=== PATIENT | male | born 1960 | race Caucasian/White ===

== ENCOUNTER 2019-08-07 15:14 | Outpatient (CLI) | payer OTHER, SELFPAY ==
--- NOTE | ~2019-08-07 | XR_ITS ---
XR lumbar spine 2-3V 08/07/2019 15:45 Indication: Low back pain. Spinal stenosis. Procedure: 3 views lumbar spine Comparison: No prior studies for comparison. Findings: There is spondylolysis at L5-S1 with grade 1 spondylolisthesis. There is disc narrowing at L5-S1. There is disc narrowing at L4-5 and L3-4. Pedicle intact. Sacral foramen are symmetric. No fra cture or traumatic malalignment. Impression: 1: Mild-moderate lumbar spondylosis with grade 1 spondylolisthesis at L5-S1 secondary to spondylolysi s. Reviewed, dictated and finalized at location B. R DIESEL LOCOMOTIVE Impression: 1: Mild-moderate lumbar spondylosis with grade 1 spondylolisthesis at L5-S1 sec ondary to spondylolysis.
--- NOTE | ~2019-08-07 | XR_ITS ---
EXAMINATION: XR thoracic spine 3V EXAM DATE: 08/07/2019 15:45 INDICATION: Dorsalgia, spinal stenosis. Injury years ago. Pain is increasing. TECHNIQUE: Frontal and lateral projections of the thoracic spine as well as lateral swimmers projecti on of the upper thoracic spine for interpretation. There is no prior study for comparison. FINDINGS: There is mild mid thoracic and lower thoracic disc disease. There are no bony erosions iden tified. Multilead pacemaker/AICD device. The vertebral bodies are aligned in the AP dimension. Parasp inal soft tissue is unremarkable. There is a nodular density projecting over 2 ribs and the right lateral aspect of the lung zones. Cou ld be bone island, summation shadows or intraparenchymal nodule. This is not identified on a chest x- ray from 2010. Recommend follow-up two-view frontal and lateral examination. IMPRESSION: 1. Indeterminate right midlung zone lateral nodular density; recommend PA/lateral chest x-rays. 2. Mild thoracic spondylosis. Reviewed, dictated and finalized at location A. STEWARD IMPRESSION: 1. Indeterminate right midlung zone lateral nodular density; recommend PA/late ral chest x-rays. 2. Mild thoracic spondylosis.
--- NOTE | ~2019-08-07 | XR_ITS ---
XR cervical spine 4-5V 08/07/2019 15:45 Indication: Low back pain. Spinal stenosis. Procedure: 4 view cervical spine Comparison: No prior studies for comparison. Findings: There is degenerative anterolisthesis at C2-3 and retrolisthesis at C3-4. There is disc silvia rowing at C3-4 through C7-T1. No acute fracture or traumatic malalignment. There is mild uncinate and facet degenerative change at multiple levels. No prevertebral soft tissue swelling. Lung apices are normal. Impression: 1: Mild-moderate cervical spondylosis. Reviewed, dictated and finalized at location B. MAKER Impression: 1: Mild-moderate cervical spondylosis.
== END 2019-08-07 15:15 | disposition home or self-care (01) ==
PROVIDERS: PCP Family Medicine; Visit Provider Nurse Practitioner Family
DX: M48.02 Spinal stenosis, cervical region (principal); M47.894 Other spondylosis, thoracic region; M47.896 Other spondylosis, lumbar region; M47.892 Other spondylosis, cervical region
CPT/HCPCS: 72050; 72072; 72100

== ENCOUNTER 2020-10-20 22:49 | Emergency (ER) | payer OTHER, SELFPAY ==
--- NOTE | ~2020-10-20 | CT_ITS ---
EXAMINATION: CT lumbar spine wo con DATE: 10/21/2020 01:43 INDICATION: Low back pain. Sciatica. TECHNIQUE: Computed tomography (CT) of the lumbar spine was performed without intravenous contrast. A utomated exposure control and iterative reconstruction technique were employed. The dose-length produ ct was 520.66 mGy-cm. COMPARISON: Lumbar spine radiograph 08/07/2019 FINDINGS: There is 7 degrees dextrocurvature of lumbar spine. There are chronic bilateral L5 pars def ects. There is 7 mm anterolisthesis of L5 on S1. There is severely decreased disc height at L5-S1 wit h endplate remodeling and mild chronic height loss of L5 vertebral body. There is mildly decreased di sc height at L3-L4. The following disc levels are specifically discussed: L1-L2: The disc does not extend beyond the endplate margin. There is mild bilateral facet joint osteo arthritis. There is no neural foraminal stenosis. There is no central canal stenosis. L2-L3: The disc does not extend beyond the endplate margin. There is mild bilateral facet joint osteo arthritis. There is no neural foraminal stenosis. There is no central canal stenosis. L3-L4: The disc is bulging. There is mild bilateral facet joint osteoarthritis. There is moderate john ateral neural foraminal stenosis. There is mild central canal stenosis. L4-L5: The disc is bulging. There is severe bilateral facet joint osteoarthritis. There is moderate b ilateral neural foraminal stenosis. There is mild central canal stenosis. L5-S1: The disc is bulging. There is severe bilateral facet joint osteoarthritis. There is moderate b ilateral neural foraminal stenosis. There is moderate central canal stenosis. IMPRESSION: 1. Chronic bilateral L5 pars defects with grade 1 anterolisthesis of L5 on S1. 2. Severe lower lumbar spondylosis. Reviewed, dictated and finalized at location A.
[2020-10-20 22:50] VITALS: BP 126/69; PULSE 93; RESP 17; TEMP 36.4; O2SAT 100
--- NOTE | 2020-10-21 00:42 | PC.NURSE ---
1ST CALL TO BRING TO A ROOM, NO ANSWER AT THIS TIME.
[2020-10-21 01:45] VITALS: BP 130/83; PULSE 81; RESP 20; O2SAT 99
[2020-10-21] MEDS: HYDROmorphone HCL INJ (*CRX) 1 MG/ML SYR IM (01:47)
[2020-10-21] MEDS: methylPREDNISolone SOD SUCC 125 MG VIAL IM (01:47)
[2020-10-21] MEDS: diazePAM INJ (*CRX) 10 MG/2 ML SYRINGE 5 MG IM (01:48)
--- NOTE | 2020-10-21 02:18 | ED.GENADULT ---
HPI - General Adult General Chief complaint: Back Pain/Injury Stated complaint: back and neck pain Time Seen by Provider: 10/21/20 01:20 History of Present Illness HPI narrative: Patient is a 60-year-old gentleman who presents emerged part with chief complaint of low back pain. Patient reports that he started having pain in his lumbar region reports it radiates down to his right gluteal region reports it goes down his right leg. Patient reports he has history of sciatica and history of chronic back pain. The patient reports that his doctors been reducing his pain medication and muscle relaxer Related Data Home Medications Medication Instructions Recorded Confirmed atorvastatin 10/21/20 hydrocodone-acetaminophen tablet 10/21/20 Allergies Allergy/AdvReac Type Severity Reaction Status Date / Time No Known Allergies Allergy Verified 10/21/20 01:45 Review of Systems Review of Systems: Narrative: A 10 system review of systems was completed on the patient and is negative except for what is stated in the HPI. Nursing and ancillary documentation was reviewed. PMFSH Comments Patient has history of congestive heart failure AICD placement patient has history of chronic back pain Social history patient denies illicit drug use Exam Narrative: Exam Narrative: GENERAL: Well-appearing, well-nourished, and in no acute distress. HEAD: Normocephalic, atraumatic. EYES: PERRLA and EOMI. ENT: Nares clear, no rhinorrhea or epistaxis. Mucous membranes moist. NECK: Supple. CHEST: Clear to auscultation. No respiratory distress. HEART: Regular rate and rhythm. No murmur heard. Normal peripheral pulses. ABDOMEN: Soft, nontender, nondistended, normal active bowel sounds. EXTREMITIES: Normal range of motion. No edema. There is tenderness palpation of the lumbar region and there is tenderness around the right SI joint SKIN: Warm, dry, no rash. NEURO: No focal deficits. Alert and oriented x3. PSYCH: Normal mood and affect. Course Vital Signs Vital signs: Vital Signs Temperature 36.4 C 10/20/20 22:50 Pulse Rate 93 10/20/20 22:50 Respiratory Rate 17 10/20/20 22:50 Blood Pressure 126/69 10/20/20 22:50 Pulse Oximetry 100 10/20/20 22:50 Temperature 36.4 C 10/20/20 22:50 Pulse Rate 81 10/21/20 01:45 Respiratory Rate 20 10/21/20 01:45 Blood Pressure 130/83 10/21/20 01:45 Pulse Oximetry 99 10/21/20 01:45 Medical Decision Making Vital Signs Vital Signs: Vital Signs Temperature 36.4 C 10/20/20 22:50 Pulse Rate 93 10/20/20 22:50 Respiratory Rate 10/20/20 22:50 Blood Pressure 126/69 10/20/20 22:50 Pulse Oximetry 100 10/20/20 22:50 Temperature 36.4 C 10/20/20 22:50 Pulse Rate 81 10/21/20 01:45 Respiratory Rate 10/21/20 01:45 Blood Pressure 130/83 10/21/20 01:45 Pulse Oximetry 99 10/21/20 01:45 Discharge Plan Discharge Clinical Impression: Low back pain Qualifiers: Chronicity: acute Back pain laterality: midline Sciatica presence: with sciatica Sciatica laterality: sciatica of right side Qualified Code(s): M54.41 - Lumbago with sciatica, right side Sciatica Qualifiers: Laterality: right Qualified Code(s): M54.31 - Sciatica, right side Patient Disposition: Home, Self-Care Condition: Stable Instructions: Antibiotic Form, Sciatica (ED), Back Pain (ED) Prescriptions: New cyclobenzaprine 10 mg tablet 10 mg PO TID PRN (Reason: muscle spasm) Qty: 21 RF: 0 prednisone 20 mg tablet 40 mg PO DAILY 5 Days Qty: 10 RF: 0 No Action atorvastatin 20 mg tablet RF: 0 hydrocodone-acetaminophen 10-325 mg tablet RF: 0 Follow-up/Referrals: Be Alegria MD [Primary Care Provider] - 1 Week
== END 2020-10-21 02:38 | disposition home or self-care (01) ==
PROVIDERS: Emergency Provider Emergency Medicine; PCP Family Medicine
DX: M54.41 Lumbago with sciatica, right side (principal); I50.9 Heart failure, unspecified; Z95.810 Presence of automatic (implantable) cardiac defibrillator
CPT/HCPCS: 72131; 96372; 99284; J1170; J2930; J3360

== ENCOUNTER 2021-08-20 12:22 | Outpatient (CLI) | payer OTHER, SELFPAY ==
--- NOTE | ~2021-08-20 | XR_ITS ---
EXAMINATION: XR thoracic spine 3V, XR lumbar spine 2-3V, XR pelvis 1-2V, XR sacrum coccyx min 2V, XR_ [id number]_CR DATE: 08/20/2021 12:54 INDICATION: Long-term chronic pain of the back and pelvis TECHNIQUE: 1. AP, lateral and odontoid views of the cervical spine were obtained. 2. One AP, lateral and lateral swimmer's views of the thoracic spine were obtained. 3. AP, lateral and coned-down lateral lumbosacral views of the lumbar spine were obtained. 4. Single AP view of the pelvis was obtained. 5. AP, angled AP and lateral views of the sacrum and coccyx were obtained. COMPARISON: Cervical, thoracic and lumbar spine radiographs dated 08/07/2019. FINDINGS: Cervical spine: Unchanged 2 mm retrolisthesis C3 on C4 and 1 mm retrolisthesis C4 on C5. 304 mm anterolisthesis C7 on T1. Normal alignment at the craniocervical junction with moderate atlantoaxial osteoarthritis. Cervi luis vertebral body heights are normal. Moderate disc height loss with moderate uncovertebral osteoart hritis at C3-C4, C4-C5, C5-C6 and C6-C7. Posterior endplate osteophytes result in mild central canal stenosis at each of these levels. Mild disc height loss at C7-T1. Multilevel moderate cervical facet osteoarthritis. Minimal atherosclerotic calcification is at the bilateral carotid bulbs. Thoracic spine: Alignment is normal. Vertebral body heights are normal. Mild disc height loss at multiple levels in t he midthoracic spine. Visualized lungs are clear with no pleural effusion or pneumothorax. Cardiomedi astinal silhouette is normal. Three lead pacemaker/AICD seen with leads projecting over the expected locations of the right atrial appendage, apex of the right ventricle and overlying the left ventricle likely having traversed the coronary sinus. Lumbar spine: 9 mm anterolisthesis L5 on S1 with band of lucency across the L5 pars interarticularis consistent wit h chronic pars in particular is defects seen on prior CT dated 10/21/2020. Severe disc height loss at L5-S1 with degenerative endplate changes and endplate remodeling with mild chronic posterior height loss at the L5 vertebral body. Remaining lumbar vertebral body heights are normal. Additional mild di sc height loss at L3-L4. Pelvis, sacrum and coccyx: Bone alignment is normal. Sacral arches are intact. No fractures. Bilateral hip joint spaces are rela tively preserved. Mild to moderate bilateral sacroiliac osteoarthritis. Chronic sclerotic lesion in t he right innominate bone lateral to the sacroiliac joint present on radiographs from 2005 and with pe ripheral rim sclerosis on prior CT suggesting bone infarct or less likely enchondroma. Additional sma ll chronic sclerotic bone island at the left innominate bone. IMPRESSION: 1. Moderate cervical and mild thoracic spondylosis. 2. L5 spondylolysis with bilateral pars intra-articularis defects with 9 mm anterolisthesis on S1 and severe L5-S1 disc height loss. Otherwise mild lumbar spondylosis. 3. Mild to moderate bilateral sacroiliac osteoarthritis. Reviewed, dictated and finalized at location A. IMPRESSION: 1. Moderate cervical and mild thoracic spondylosis. 2. L5 spondylolysis with bilateral pars intra-articularis defects with 9 mm ant erolisthesis on S1 and severe L5-S1 disc height loss. Otherwise mild lumbar spo ndylosis. 3. Mild to moderate bilateral sacroiliac osteoarthritis. IMPRESSION: 1. Moderate cervical and mild thoracic spondylosis. 2. L5 spondylolysis with bilateral pars intra-articularis defects with 9 mm ant erolisthesis on S1 and severe L5-S1 disc height loss. Otherwise mild lumbar spo ndylosis. 3. Mild to moderate bilateral sacroiliac osteoarthritis.
== END 2021-08-20 12:23 | disposition home or self-care (01) ==
PROVIDERS: PCP Family Medicine; Visit Provider Family Medicine
DX: M47.896 Other spondylosis, lumbar region (principal); M47.892 Other spondylosis, cervical region; M47.894 Other spondylosis, thoracic region; M53.3 Sacrococcygeal disorders, not elsewhere classified
CPT/HCPCS: 72040; 72072; 72100; 72170; 72220

== ENCOUNTER 2022-09-11 19:26 | Emergency (ER) | payer OTHER, SELFPAY ==
[2022-09-11 19:31] VITALS: BP 128/70; PULSE 101; RESP 20; TEMP 36.4; O2SAT 96
--- NOTE | 2022-09-11 21:44 | ED.GENADULT ---
HPI - General Adult General Chief complaint: Neck Pain/Injury Stated complaint: neck pain, no injury Time Seen by Provider: 09/11/22 21:25 History of Present Illness HPI narrative: This is a 62-year-old male with chronic neck pain presenting to ED with neck pain. Patient has been dealing with this for years. He went saw his primary care physician yesterday who gave him muscle relaxers and injection in his neck. His symptoms have not improved. He describes pain as a shooting pain that comes on for a couple seconds at a time. is 10 out 10 intensity. States in his left neck and shoulder. He has experienced this many times in the past. He denies any numbness tingling or weakness to any extremity. Denies any trauma. Patient has taken cyclobenzaprine but has not taken Motrin or Tylenol. Related Data Home Medications Medication Instructions Recorded Confirmed atorvastatin 20 mg tablet 10/21/20 hydrocodone 10 mg-acetaminophen tablet 10/21/20 325 mg tablet Allergies Allergy/AdvReac Type Severity Reaction Status Date / Time No Known Allergies Allergy Verified 10/22/20 10:01 [facility] Past Medical History Medical History (Updated 09/11/22 @ 21:49 by Thomas Orourke MD) Chronic neck pain Social History Social History (Updated 09/11/22 @ 21:46 by Thomas Orourke MD) Social History: Patient denies alcohol use, is a heavy smoker and uses marijuana daily Exam Narrative: APPEARANCE: patient appears uncomfortable, he is intermittently twitching his shoulder every couple seconds Head: atraumatic. EYES: EOMI, NOSE: Atraumatic NECK: No midline tenderness, limited motion left and right due to pain RESPIRATORY: No increased rate of breathing CARDIOVASCULAR: RRR, ABDOMINAL: Non-distended MUSCULOSKELETAl: no tenderness to palpation the left neck or left shoulder. No functional deficits to the left arm. NEURO: Alert. Moving 4/4 extremities SKIN:: Warm, dry. Normal color PSYCHIATRIC: Normal affect Course Vital Signs Vital signs: Vital Signs Temperature 97.5 F L 09/11/22 19:31 Pulse Rate 101 H 09/11/22 19:31 Respiratory Rate 20 09/11/22 19:31 Blood Pressure 128/70 09/11/22 19:31 Pulse Oximetry 96 09/11/22 19:31 Oxygen Delivery Room Air 09/11/22 19:31 Temperature 97.5 F L 04/07/23 19:31 Pulse Rate 101 H 09/11/22 19:31 Respiratory Rate 20 09/11/22 19:31 Blood Pressure 128/70 09/11/22 19:31 Pulse Oximetry 96 09/11/22 19:31 Oxygen Delivery Room Air 09/11/22 19:31 Medical Decision Making MDM Narrative Medical decision making narrative: -Presentation: 62-year-old male presenting with acute on chronic neck pain. Pain is being managed primarily by his primary care physician. The goal of today's visit is pain control. No neurologic deficits that would indicate imaging is required. -DDX includes but is not limited to: Muscle spasm, cervical radiculopathy -Co-morbidities complicating care: chronic neck pain -Social determinants of health: patient is disabled due to neck pain, lives with his girlfriend Laurence -External Chart Review: previous ER notes -Hx from independent Sources: Laurence at bedside -Discussion of Management/Consultants: none -Independent interpretation of studies: none Dx tests considered but not ordered: No neurologic deficits that would indicate imaging is required. -Procedures: none -Interventions: Motrin, Tylenol, dexamethasone, Robaxin and lidocaine patch -Shared decision making / Disposition: Patient is given symptomatic treatment for his neck pain. He will be discharged to follow-up with his primary care physician. He has been instructed to return if his pain becomes unbearable or if develops weakness in his arm. -RX Vital Signs Vital Signs: Vital Signs Temperature 97.5 F L 09/11/22 19:31 Pulse Rate 101 H 09/11/22 19:31 Respiratory Rate 20 09/11/22 19:31 Blood Pressure 128/70 09/11/22 19:31
[2022-09-11] MEDS: methocarbamoL 750 MG TABLET 1500 MG PO (21:55)
[2022-09-11] MEDS: IBUPROFEN 400 MG TABLET 800 MG PO (21:55)
[2022-09-11] MEDS: ACETAMINOPHEN 500 MG TABLET 1000 MG PO (21:55)
[2022-09-11] MEDS: LIDOCAINE 5% PATCH 1 PATCH TRANSDERM (22:06)
[2022-09-11 22:17] VITALS: BP 123/69; PULSE 91; RESP 18; TEMP 36.6; O2SAT 99
== END 2022-09-11 22:17 | disposition home or self-care (01) ==
PROVIDERS: Emergency Provider Emergency Medicine; PCP Family Medicine
DX: M54.2 Cervicalgia (principal); G89.29 Other chronic pain
CPT/HCPCS: 96372; 99283; A9270; J1100

== ENCOUNTER 2022-11-02 13:54 | Emergency (ER) | payer OTHER, SELFPAY ==
[2022-11-02 13:56] VITALS: BP 110/63; PULSE 94; RESP 16; TEMP 36.6; O2SAT 95
[2022-11-02] MEDS: KETOROLAC (*BKC) 60 MG/2 ML VIAL IM (14:35)
--- NOTE | 2022-11-02 15:24 | ED.GENADULT ---
HPI - General Adult General Chief complaint: Neck Pain/Injury Stated complaint: neck pain Time Seen by Provider: 11/02/22 14:06 History of Present Illness HPI narrative: Patient is a 62-year-old male who presents ER with left-sided neck pain. Increasing over the last 2 days. Denies any trauma or injury. He has been painting. Had similar symptoms several weeks ago. He has been on steroids as well as muscle relaxers and pain patches. He still has pain patches at home. No fevers or chills or sweats. No numbness or weakness to an arm or leg. Pain is worse with direct palpation of his left neck or with turning to the left side. Related Data Home Medications Medication Instructions Recorded Confirmed atorvastatin 20 mg tablet 10/21/20 hydrocodone 10 mg-acetaminophen tablet 10/21/20 325 mg tablet Allergies Allergy/AdvReac Type Severity Reaction Status Date / Time No Known Allergies Allergy Verified 11/02/22 13:55 Review of Systems Review of Systems: All systems reviewed & are unremarkable except as noted in HPI and below Constitutional: Constitutional: Denies chills and Denies fever(s) Musculoskeletal: Musculoskeletal: Denies back pain, Denies arthralgias and Denies joint swelling Comments: Neck pain Integumentary/Breasts: Skin/Breast: Denies erythema and Denies rash Neurologic: Denies focal weakness and Denies numbness PMFSH Past Medical History Medical History (Updated 11/02/22 @ 15:29 by Randall Neal MD) Chronic neck pain Social History Social History (Updated 09/11/22 @ 21:46 by Thomas Orourke MD) Social History: Patient denies alcohol use, is a heavy smoker and uses marijuana daily Exam Narrative: GENERAL: Well-appearing, well-nourished, and in no acute distress. HEAD: Normocephalic, atraumatic. EYES: PERRL and EOMI. NECK: Supple. Tender palpation left neck over the paraspinal musculature without midline tenderness. No knots or spasms noted. Mild discomfort left trapezius as well. CHEST: Clear to auscultation. No respiratory distress. HEART: Regular rate and rhythm. Normal peripheral pulses. EXTREMITIES: Normal range of motion. No edema. NEURO: Alert and oriented x3. PSYCH: Normal mood and affect. Course Course Emergency Course: Patient given a shot of Toradol and feels improved at rest but with pain when turning to the left. Will discharge with scheduled anti-inflammatories and muscle relaxers, one dose valium before d/c. No traumatic injury or midline tenderness so imaging not ordered. Patient without neurologic deficit or infectious symptoms. Vital Signs Vital signs: Vital Signs Temperature 97.8 F 11/02/22 13:56 Pulse Rate 94 11/02/22 13:56 Respiratory Rate 16 11/02/22 13:56 Blood Pressure 110/63 11/02/22 13:56 Pulse Oximetry 95 11/02/22 13:56 Temperature 97.8 F 11/02/22 13:56 Pulse Rate 94 11/02/22 13:56 Respiratory Rate 16 11/02/22 13:56 Blood Pressure 110/63 11/02/22 13:56 Pulse Oximetry 95 11/02/22 13:56 Medical Decision Making Vital Signs Vital Signs: Vital Signs Temperature 97.8 F 11/02/22 13:56 Pulse Rate 94 11/02/22 13:56 Respiratory Rate 16 11/02/22 13:56 Blood Pressure 110/63 11/02/22 13:56 Pulse Oximetry 95 11/02/22 13:56 Temperature 97.8 F 11/02/22 13:56 Pulse Rate 94 11/02/22 13:56 Respiratory Rate 16 11/02/22 13:56 Blood Pressure 110/63 11/02/22 13:56 Pulse Oximetry 95 11/02/22 13:56 Discharge Plan Discharge Clinical Impression: Muscle spasms of neck Patient Disposition: Home, Self-Care Condition: Stable Instructions: Muscle Spasm (ED) Additional Instructions: Return to the ER if you have increased pain in your neck/back, you develop lower extremity weakness/numbness/paralysis, you have numbness or tingling in your private parts, or you are unable to control your ability to urinate/stool. Prescriptions: New cyclobenza
[2022-11-02] MEDS: diazePAM (*CRX) 2 MG TABLET PO (15:35)
== END 2022-11-02 15:37 | disposition home or self-care (01) ==
PROVIDERS: Emergency Provider Emergency Medicine; PCP Family Medicine
DX: M62.838 Other muscle spasm (principal)
CPT/HCPCS: 96372; 99283; A9270; J1885

== ENCOUNTER 2022-11-04 18:12 | Emergency (ER) | payer OTHER, SELFPAY ==
[2022-11-04 18:17] VITALS: BP 101/78; PULSE 100; RESP 18; TEMP 36.3; O2SAT 97
--- NOTE | 2022-11-04 18:46 | ED.GENADULT ---
HPI - General Adult General Chief complaint: Neck Pain/Injury Stated complaint: neck pain Time Seen by Provider: 11/04/22 18:25 History of Present Illness HPI narrative: 62-year-old male presented the emergency department for evaluation of acute on chronic left-sided neck pain. Patient reports he has had ongoing pain for approximate the last 4 years. Patient has had acutely worsening pain over the last few weeks. Patient has been to the emergency department multiple times in the last few weeks for this. Patient does have follow-up pending with his primary care physician on Wednesday. Patient denies any associated numbness or weakness. Patient reports increased pain that radiates up his left neck when he turns his head to the left. Related Data Home Medications Medication Instructions Recorded Confirmed atorvastatin 20 mg tablet 10/21/20 hydrocodone 10 mg-acetaminophen tablet 10/21/20 325 mg tablet Allergies Allergy/AdvReac Type Severity Reaction Status Date / Time No Known Allergies Allergy Verified 11/04/22 18:13 Review of Systems Review of Systems: All systems reviewed & are unremarkable except as noted in HPI and below PMFSH Past Medical History Medical History (Updated 11/05/22 @ 00:00 by Sami Yeung) Chronic neck pain Social History Social History (Updated 09/11/22 @ 21:46 by Thomas Orourke MD) Social History: Patient denies alcohol use, is a heavy smoker and uses marijuana daily Exam Narrative: APPEARANCE: Well appearing, no pain, no distress, well-nourished. HEAD: normocephalic, atraumatic. EYES: PERRLA/EOMI, conjunctivae clear. NOSE: Normal no drainage NECK: Left lateral neck tenderness to palpation. No midline tenderness to palpation RESPIRATORY: Airway patent, respirations nonlabored. Clear to auscultation bilaterally, no rales, rhonchi, wheezing. CARDIOVASCULAR: Regular rate and rhythm without murmurs rubs or gallops. ABDOMINAL: Soft, nontender, nondistended, normal bowel sounds MUSCULOSKELETAL: Tenderness of left shoulder/left lateral neck muscles NEURO: Alert. Cranial nerves II through XII intact. Grossly intact SKIN: Warm, dry. Normal Color Course Course Emergency Course: 62-year-old male presented ED for evaluation of left lateral neck pain. Patient reports he did feel improved with the steroids previously. Patient does have follow-up scheduled with his primary care physician. Patient was started on a Medrol Dosepak and his cyclobenzaprine was refilled. Patient states he does have additional [place] at home. Patient was encouraged to continue to have follow-up. Patient was also educated on reasons to return to the emergency room. All questions and concerns were addressed. Patient did feel improved with the treatment provided in the ED. Vital Signs Vital signs: Vital Signs Temperature 97.4 F L 11/04/22 18:17 Pulse Rate 100 11/04/22 18:17 Respiratory Rate 18 11/04/22 18:17 Blood Pressure 101/78 11/04/22 18:17 Pulse Oximetry 97 11/04/22 18:17 Oxygen Delivery Room Air 11/04/22 18:17 Temperature 97.4 F L 11/04/22 18:17 Pulse Rate 100 11/04/22 18:17 Respiratory Rate 18 11/04/22 18:17 Blood Pressure 101/78 11/04/22 18:17 Pulse Oximetry 97 11/04/22 18:17 Oxygen Delivery Room Air 11/04/22 18:17 Medical Decision Making Differential Diagnosis Differential Diagnosis: Neck strain, muscle strain, cervical radiculopathy, torticollis Vital Signs Vital Signs: Vital Signs Temperature 97.4 F L 11/04/22 18:17 Pulse Rate 100 11/04/22 18:17 Respiratory Rate 18 11/04/22 18:17 Blood Pressure 101/78 11/04/22 18:17 Pulse Oximetry 97 11/04/22 18:17 Oxygen Delivery Room Air 11/04/22 18:17 Temperature 97.4 F L 11/04/22 18:17 Pulse Rate 100 11/04/22 18:17 Respiratory Rate 18 11/04/22 18:17 Blood Pressure 101/78 11/04/22 18:17 Pulse Oximetry 97 11/04/22 18:17 Oxygen Delivery Room Air
[2022-11-04] MEDS: KETOROLAC 30 MG/ML VIAL (*BKC) IM (18:53)
== END 2022-11-04 19:09 | disposition home or self-care (01) ==
LOC: ANHED 18:59
PROVIDERS: Emergency Provider Emergency Medicine; PCP Family Medicine
DX: M54.2 Cervicalgia (principal); G89.29 Other chronic pain; S16.1XXA Strain of muscle, fascia and tendon at neck level, initial encounter; X58.XXXA Exposure to other specified factors, initial encounter
CPT/HCPCS: 96372; 99284; J1100; J1885

== ENCOUNTER 2023-10-09 13:05 | Emergency (ER) | payer OTHER, SELFPAY ==
--- NOTE | ~2023-10-09 | CT_ITS ---
EXAMINATION: CT cervical spine wo con DATE: 10/09/2023 15:14 INDICATION: neck pain TECHNIQUE: Computed tomography (CT) of the cervical spine was performed without intravenous contrast. Automated exposure control and iterative reconstruction technique were employed. The dose-length pro duct was 498.99 mGy-cm. COMPARISON: X-ray C-spine 08/20/2021. FINDINGS: Vertebral Body Alignment: Stable grade 1 degenerative listheses at C2-3 and C3-4. Reversed lordosis, centered at C3-4, stable. Craniocervical and atlantoaxial alignment: Moderate degenerative change. Alignment intact. Osseous structures/fracture: No evidence of a lytic or blastic process in the visualized spine. No e vidence of acute fracture. Cervical soft tissues: The paraspinal soft tissues planes are maintained. Emphysematous changes in th e lungs. Degenerative changes: Multilevel severe degenerative disc disease. Multilevel moderate and severe fac et arthropathy, more pronounced on the left. No severe central canal narrowing. Multilevel moderate n eural foraminal narrowing. IMPRESSION: No acute fracture or traumatic malalignment in the cervical spine. Reviewed, dictated and finalized at location K.
[2023-10-09 13:06] VITALS: BP 120/73; PULSE 74; RESP 18; TEMP 36.4; O2SAT 97
--- NOTE | 2023-10-09 14:52 | ED.NECK ---
HPI - Neck Pain/Injury General Chief Complaint: Neck Pain/Injury Stated Complaint: neck pain Time Seen by Provider: 10/09/23 13:53 Source: patient Mode of arrival: ambulatory Limitations: no limitations History of Present Illness HPI Narrative: This is a 63 year old male that presents to the ER for acute on chronic neck pain. 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 Since he has had pain and stiffness in his neck. He took an Ibuprofen today with little relief. Reports history of chronic neck pain. He has seen a neurosurgeon for this in the past. Denies weakness or numbness. Related Data Home Medications Medication Instructions Recorded Confirmed atorvastatin 20 mg tablet 10/21/20 hydrocodone 10 mg-acetaminophen tablet 10/21/20 325 mg tablet Allergies Allergy/AdvReac Type Severity Reaction Status Date / Time No Known Allergies Allergy Verified 10/09/23 14:22 Review of Systems Review of Systems: CONSTITUTIONAL: Denies fever SKIN: Denies rash MUSCULOSKELETAL: Reports joint pain, and myalgia. NEUROLOGIC: Denies numbness, or weakness. All systems reviewed & are unremarkable except as noted in HPI and below PMFSH Past Medical History Medical History (Updated 10/09/23 @ 16:00 by Gail Bhardwaj PA-C) Chronic neck pain Social History Social History (Updated 09/11/22 @ 21:46 by Thomas Orourke MD) Social History: Patient denies alcohol use, is a heavy smoker and uses marijuana daily Exam Narrative: GENERAL: Well-appearing, well-nourished, and in no acute distress. HEAD: Normocephalic, atraumatic. EYES: EOMI. NECK: Supple. No adenopathy or masses. Tender to palpation of the paraspinal musculature bilaterally CHEST: Clear to auscultation. No respiratory distress. No wheezes rales or rhonchi HEART: Regular rate and rhythm. No murmur heard. Normal peripheral pulses. EXTREMITIES: Normal range of motion. No edema. Strength equal in bilateral upper extremities (5/5) SKIN: Warm, dry, no rash. NEURO: No focal deficits. Alert and oriented x3. PSYCH: Normal mood and affect Course Course Emergency Course: Patient updated on his workup and agrees with plan of care Vital Signs Vital signs: Vital Signs Temperature 97.6 F 10/09/23 13:06 Pulse Rate 74 10/09/23 13:06 Respiratory Rate 18 10/09/23 13:06 Blood Pressure 120/73 10/09/23 13:06 Pulse Oximetry 97 10/09/23 13:06 Oxygen Delivery Room Air 10/09/23 13:06 Temperature 97.6 F 10/09/23 13:06 Pulse Rate 74 10/09/23 13:06 Respiratory Rate 18 10/09/23 13:06 Blood Pressure 120/73 10/09/23 13:06 Pulse Oximetry 97 10/09/23 13:06 Oxygen Delivery Room Air 10/09/23 13:06 MDM - Neck Pain/Injury MDM Narrative Medical decision making narrative: Patient presents to the emergency department for acute on chronic neck pain. His vitals are stable. He is neurologically intact. CT cervical spine is without acute findings. Patient was updated on his workup and agrees with plan of care. Instructed to have further follow-up with his neurosurgeon. Will be continued on oral steroids and given muscle relaxers as needed. He was given warnings to return to the ER Differential Diagnosis Differential diagnosis: Likely disc disorder of cervical region, cervical radiculopathy, strain of neck muscle and other (muscle spasm) Imaging Data Radiologist's impression: ITS Impressions Cervical Spine CT 10/09/23 15:26 IMPRESSION: No acute fracture or traumatic malalignment in the cervical spine. Critical Care Time Critical Care Time Critical Care Time: No Discharge Plan Discharge Clinical Impression: Chronic neck pain Patient Disposition: Home, Self-Care Condition: Stable Instructions: Muscle Spasm (ED), Degenerative Disc Disease (ED) Additional Instructions: Return to the ER if you experience weakness, numbness, bowel/bladder incontinence, or any other sympto
[2023-10-09] MEDS: ACETAMINOPHEN 500 MG TABLET 1000 MG PO (15:01)
[2023-10-09] MEDS: predniSONE 20 MG TABLET 60 MG PO (15:01)
[2023-10-09] MEDS: diazePAM INJ (*CRX) 10 MG/2 ML SYRINGE 5 MG IM (15:01)
== END 2023-10-09 16:10 | disposition home or self-care (01) ==
PROVIDERS: Emergency Provider Physician Assistant; PCP Family Medicine
DX: M54.2 Cervicalgia (principal); G89.29 Other chronic pain
CPT/HCPCS: 72125; 96372; 99284; A9270; J3360; J7512

== ENCOUNTER 2024-07-13 15:11 | Emergency (ER) | payer OTHER, SELFPAY ==
--- OUTSIDE RECORDS SUMMARY | 2024-07-13 15:18 | XMS_ITS | Patient Health Summary ---
Author Organization [facility] [employer] Address [address] [place] [address] Care Team Providers Care Functional Tester Name Role Phone Obed Luna MD Primary Care Provider [phone] Note from [facility],non-owned Affiliates and Associated Physician Practices is amultiple site organization consisting of ambulatory clinics and hospital sitesin [place], [place], [place] and [place]. This disclosure is being madepursuant to the Care Everywhere program and may not contain all information available regarding this patient. Last updated 18.[facility] [employer] Allergies No known active allergies Medications * Be aware that medications may not be up to date on this document. Alwaysverify current medications with the patient. * clonazePAM (KLONOPIN) 1 MG tablet(Started 04/15/2017) * cyclobenzaprine (FLEXERIL) 10 MG tablet(Started 04/16/2017) * lisinopril (PRINIVIL; ZESTRIL) 10 MG tablet(Started 01/30/2017) * nitroGLYCERIN (NITROSTAT) 0.4 MG tablet(Started 03/20/2017) * citalopram (CELEXA) 40 MG tablet(Started 12/01/2007) * fenofibrate (LOFIBRA) 160 MG tablet(Started 01/30/2017) * spironolactone (ALDACTONE) 25 MG tablet(Started 01/30/2017) * albuterol HFA (PROAIR HFA) 108 (90 BASE) MCG/ACT inhaler(Started 01/30/2017) * traMADol (ULTRAM) 50 MG tablet(Started 04/08/2017) * fluticasone-salmeterol (ADVAIR DISKUS) 250-50 MCG/DOSE inhaler(Started 12/01/2007) * ibuprofen (MOTRIN) 800 MG tablet(Started 04/01/2017) * HYDROcodone-acetaminophen (NORCO) 10-325 MG tablet Take 1 tablet by mouth every 6 hours as needed for Pain * polyethylene glycol (GOLYTELY) 236 g solution(Started 07/19/2019) Drink 1/2 of prep at 5pm the night before test. Finish the prep at 4am the day of test. Social History Tobacco Use Types Packs/Day Years Used Date Smoking Tobacco: Every Day Cigarettes Smokeless Tobacco: Never Alcohol Use Standard Drinks/Week Comments Yes 6 (1 standard drink = 0.6 oz pur e alcohol) Sex and Gender Information Value Date Recorded Sex Assigned at Not on file Gender Identity Not on file Sexual Orientation Not on file Last Filed Vital Signs Vital Sign Reading Time Taken Comments Blood Pressure 117/71 04/19/2017 1:11 PM ARCHIVAL STUDIES PROFESSOR Pulse 79 04/19/2017 1:11 PM ARCHIVAL STUDIES PROFESSOR Temperature - - Respiratory Rate - - Oxygen Saturation - - Inhaled Oxygen Concentration - - Weight 79.8 kg (176 lb) 04/19/2017 1:11 PM ARCHIVAL STUDIES PROFESSOR Height 172.7 cm (5' 8 ) 04/19/2017 1:11 PM ARCHIVAL STUDIES PROFESSOR Body Mass Index 26.76 04/19/2017 1:11 PM ARCHIVAL STUDIES PROFESSOR Care Teams Functional Tester Relationship Specialty Start Date End Date Obed Luna MD [address] [place] [address] PCP - General 12/28/16
--- OUTSIDE RECORDS SUMMARY | 2024-07-13 15:18 | XMS_ITS | Referral Summary ---
Author Organization [facility] [place] [address] Address [address] [place] [address] Care Team Prov[address] Care Road Grader Name Role Phone Be Alegria MD Primary Care Provider [phone] Allergies No known active allergies Medications HYDROcodone-acetam inophen (LORCET 10/650) 10-650 mg per tablet take 1 tablet by oral route 4 - 6 hours as needed for pain 0 08/04/19 11 Active traMADol (ULTRAM) 50 mg tablet take 1 by Oral route 3 times every day as needed. 0 0 12/01/19 08 Active Additional Information Patient not taking.Reported on 07/14/2021 clonazePAM (KlonoPIN) 1 mg tablet take 1 by Oral route 3 times every day 0 0 12/01/19 08 Active Additional Information Patient not taking.Reported on 07/14/2021 tiotropium (SPIRIVA WITH HANDIHALER) 18 mcg per inhalation capsule One puff one time per day 0 0 12/01/19 08 Active Additional Information Patient not taking.Reported on 07/14/2021 fluticasone-salmet isabel (ADVAIR DISKUS) 250-50 mcg/dose diskus inhaler One puff one time per day 0 0 12/01/19 08 Active Additional Information Patient not taking.Reported on 07/14/2021 spironolactone (ALDACTONE) 25 mg tablet Take one by mouth one time per day for heart 30 2 12/01/19 08 Active Additional Information Patient taking differently:25 mg,(No PRN reasons reported), Reported on 08/17/2022 fenofibrate micronized (LOFIBRA) 200 mg capsule take 1 capsule (200MG) by oral route every day with food 30 1 07/18/19 13 Active aspirin (ASPIR-81) 81 mg tablet Take one by mouth one time per day 100 3 07/31/19 09 Active albuterol (PROVENTIL,VENTOLI N) 90 mcg/actuation inhaler Take as directed 0 0 07/31/19 09 Active nicotine 21-14-7 mg/24 hr patch, TD daily, sequentialIndicati ons:Tobacco abuse counseling Please give 14 patch from each strength. Apply one patch daily starting with 21mg until you run out. Then use the 14mg patch. 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 25 tablet 2 08/10/19 24 Active Active Problems Problem Noted Date Diagnosed Date CHILDS (dyspnea on exertion) 07/14/2021 Tobacco abuse counseling 07/14/2021 Other chest pain 07/14/2021 Anxiety 07/14/[address] 02/27/2014 Overview (10/30/2020): Biventricular ICD (implantable cardioverter-defibrillator) in place. [employer] BIV ICD. Dx; CM, CHF. Gen change 06/30/2014-[place], chronic leads. Declined remote monitoring. Office checks Q3 mo. Noncompliance with treatment 02/27/2014 Overview (09/11/2016): Noncompliance Automatic implantable cardioverter-defibrillator in situ 12/19/2013 Overview (09/11/2016): STATUS AUTM CRD DFBRLTR Tobacco dependence syndrome 10/21/2013 Overview (09/10/2016): TOBACCO USE DISORDER Chronic systolic heart failure (CMS/HCC) 014 Overview (09/11/2016): CHR SYSTOLIC HRT FAILURE Dilated cardiomyopathy secondary to alcohol 10/05 Overview (09/11/2016): ALCOHOLIC CARDIOMYOPATHY Resolved Problems Problem Noted Date Diagnosed Date Resolved Date Nondependent alcohol abuse, in remission 10/21/2013 07/14/2021 Overview (09/10/2016): ALCOHOL ABUSE-IN REMISS Social History Tobacco Use Types Packs/Day Years Used Date Smoking Tobacco: Every Day Tobacco Cessation:Ready to Q uit: Not Asked; Counseling Given: Not Answered Alcohol Use Standard Drinks/Week Comments No 0 (1 standard drink = 0.6 oz pur e alcohol) Sex and Gender Information Value Date Recorded Sex Assigned at Not on file Legal Sex 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 Gender Identity Not on file Sexual Orientation Not on file Last Filed Vital Signs Vital Sign Reading Time Taken Comments Blood Pressure 118/70 08/17/2022 11:55 AM CDT Pulse 77 08/17/2022 11:55 AM CDT Temperature - - Respiratory Rate - - Oxygen Saturation 97% 08/17/2022 11:55 AM CDT Inhaled Oxygen Concentration - - Weight 83 kg (183 lb) 08/17/2022 11:55 AM CDT Height 175.3 cm (5' 9 ) 08/17/2022 11:55 AM CDT Body Mass Index 27.02 08/17/2022 11:55 AM CDT Plan of Treatment Not on file Insurance [facility] Care Teams Road Grader Relationship Specialty Start Date End Date Be Alegria MD PCP - General Family Medicine 08/17/22
--- OUTSIDE RECORDS SUMMARY | 2024-07-13 15:18 | XMS_ITS | Encounter Summary ---
Author Organization [facility] Address [address] [place] [address] Phone Care Team Providers Care Caustics Loader Name Role Phone Edward Singletary MD Primary Care Provider [phone] Reason for Visit * Reason Comments Medication Refill Encounter Details Date Type Department Care Team (Late st Contact Info) Description 05/30/2020 [facility] [address] [place] [address] Edward Singletary MD [address] [address] Medication Refill Social History Tobacco Use Types Packs/Day Years Used Date Smoking Tobacco: Every Day Cigarettes Smokeless Tobacco: Never Alcohol Use Standard Drinks/Week Comments Yes 0 (1 standard drink = 0.6 oz pur e alcohol) occasional PHQ-2 Answer Date Recorded PHQ-2 Score 1 02/03/2019 Sex and Gender Information Value Date Recorded Sex Assigned at Not on file Legal Sex Male 11:03 PM CDT Gender Identity Not on file Sexual Orientation Not on file documented as of this encounter Miscellaneous Notes * Telephone Encounter - Renuka Jensen RMA - 06/03/2020 8:42 AM PV DESIGN AND INSTALLATION TECHNICIAN Patient has another provider, due to [employer] ins. DESIGN AND INSTALLATION TECHNICIAN * Telephone Encounter - Opal Lopes RN - 06/03/2020 8:30 AM CST Patient needs appointment per Dr Singletary. DESIGN AND INSTALLATION TECHNICIAN * Telephone Encounter - Christen Medina RN - 06/01/2020 1:27 PM CST Medication failed the protocol, provider to review and approve the medication order if appropriate.Last OV 01/2019, no pcp listed. Requested Prescriptions Pending Prescriptions Disp Refills citalopram (CeleXA) 40 MG Tablet [Pharmacy Med Name: CITALOPRAM 40MG TABLETS] 30 Tab Sig: TAKE 1 TABLET BY MOUTH DAILY Not Delegated - Psychiatry: Antidepressants Failed - 05/30/2020 2:57 PM Failed - Valid encounter within last 12 months Past Office Visits Recent Outpatient Visits 1 year ago Screening for colon cancer [facility] Edward Fuller MD 1 year ago Essential hypertension [facility] Edward Fuller MD 1 year ago Essential hypertension [facility] Edward Fuller MD 2 years ago Pure hypercholesterolemia [facility] Edward Fuller MD 2 years ago Essential hypertension [facility] Edward Fuller MD Upcoming Appointments ENGINEERING FACULTY - Recent and Past Visits Recent Visits No visits were found meeting these conditions. Showing recent visits within past 460 days with a meds authorizing provider and meeting all other requirements Future Appointments No visits were found meeting these conditions. Showing future appointments within next 90 days with a meds authorizing provider and meeting all other requirements Failed - This refill cannot be delegated DESIGN AND INSTALLATION TECHNICIAN documented in this encounter Plan of Treatment Not on file documented as of this encounter Visit Diagnoses Not on filedocumented in this encounter Additional Health Concerns Assessment Noted Time PHQ-9 Depression Total Score: 1 01/25/20 19 1:56 PM CDT documented as of this encounter Care Teams Caustics Loader Relationship Specialty Start Date End Date Edward Singletary MD [address] [address] PCP - General Family Medicine 10/23/20 documented as of this encounter
--- OUTSIDE RECORDS SUMMARY | 2024-07-13 15:18 | XMS_ITS | Clinical Summary ---
Author Organization [facility] [address] Address [address] [place] [address] Care Team Providers Care Freight Delivery Driver Name Role Phone Be Alegria MD Primary Care Provider [phone] Allergies No known active allergies Medications HYDROcodone-acetam [...] (10/30/2020): Biventricular ICD (implantable cardioverter-defibrillator) in place. [employer] BIV ICD. Dx; CM, CHF. Gen change [...] 10/21/2013 07/14/2021 Overview (09/10/2016): ALCOHOL ABUSE-IN REMISS Surgical History Surgery Date Site/Laterality Comments OTHER SURGICAL HISTORY Hepatitis, alcoholic: INSERT / REPLACE / REMOVE PACEMAKER Medical History Medical History Date Comments Anxiety disorder Anxiety Personality disorder (HCC) Perso nality disorder Hx Other Medical Back Pain Chronic obstructive pulmonary disease (HCC) COPD Alcoholic hepatitis Hepatitis, a lcoholic Family History Medical History Relation Name Comments Heart disease Father Heart disease Mother Relation Name Status Comments Father Mother Social History Tobacco Use Types Packs/Day Years Used Date Smoking Tobacco: Every Day Tobacco Cessation:Ready to Q uit: Not Asked; Counseling Given: Not Answered Alcohol Use Standard Drinks/Week Comments No 0 (1 standard drink = 0.6 oz pur e alcohol) Sex and Gender Information Value Date Recorded Sex Assigned at Not on file Legal Sex 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 Gender Identity Not on file Sexual Orientation Not on file Obstetrics History Last Filed Vital Signs Vital Sign Reading [...] 08/17/2022 11:55 AM CDT Plan of Treatment Health Maintenance Due Date Last Done Comments Colon Cancer Screening-Colonoscopy 1959 Depression Screening 1959 Fall Risk Assessment 1959 Hepatitis C Screening 1959 Prostate Cancer Screening-PSA 1959 Pneumococcal vaccine 65+ (1 of 2 - PCV) 1965 DTaP/Tdap/Td Vaccine (1 - Tdap) 1970 Hepatitis B Screening 1977 Zoster Vaccine (1 of 2) 2009 Covid-19 Vaccine (3 - season) 2024, 12/25/2020 Influenza Vaccine (#1) 2024 Abdominal Aortic Aneurysm (AAA) Screen 2024 Well Visit 65+ [address] [facility] Care Teams Freight Delivery Driver Relationship Specialty Start Date End Date Be Alegria MD PCP - General Family Medicine 08/17/22
--- OUTSIDE RECORDS SUMMARY | 2024-07-13 15:18 | XMS_ITS | Clinical Summary ---
Author Organization [facility] Address [address] [place] [address] Phone Care Team Providers Care Coroner Transport Technician Name Role Phone Edward Singletary MD Primary Care Provider [phone] Allergies No known active allergies Medications spironolactone (ALDACTONE) 25 MG Tablet TAKE 1 TAB BY MOUTH DAILY. 90 Tab 2 9 Active cyclobenzaprine (FLEXERIL) 10 MG Tablet TAKE 0.5 TABS BY MOUTH 3 TIMES DAILY NEEDED FOR MUSCLE SPASMS. 135 Tab 1 9 Active ibuprofen (MOTRIN) 800 MG Tablet TAKE ONE TABLET BY MOUTH EVERY 8 HOURS WITH FOOD NEEDED 270 Tab 3 9 Active fenofibrate 160 MG Tablet Take 1 Tab by mouth daily. 30 Tab 0 Active aspirin EC 81 MG Tablet Delayed Response 81 mg. 9 Active atorvastatin (LIPITOR) 20 MG Tablet Take 20 mg by mouth daily. 1 Active DULoxetine (CYMBALTA) [address] Particles TAKE 1 CAPSULE BY MOUTH EVERY DAY 1 Active hydrOXYzine (ATARAX) 50 MG Tablet TAKE 1 TABLET BY MOUTH THREE TIMES DAILY 1 Active PEG-3350/Electr olytes (polyethylene glycol) 236 g Recon Soln Drink 1/2 of prep at 5pm the night before test. Finish the prep at 4am the day of test. 0 Active nitroGLYCERIN (NITROSTAT) 0.4 MG SL Tablet Dissolve 1 tab under tongue as needed for chest pain 25 Tablet 10 1 Active Ventolin HFA 108 (90 Base) MCG/ACT Aerosol Solution take 2 Puffs by inhalation every 4 hours as needed for Wheezing. 2 Inhaler 2 1 Active lisinopril (PRINIVIL, ZESTRIL) 10 MG Tablet Take 1 Tablet by mouth daily. 90 Tablet 2 1 Active citalopram (CeleXA) 40 MG Tablet TAKE 1 TABLET BY MOUTH DAILY 90 Tablet 3 2 Active Active Problems Patient Care Coordination No te Formatting of this note migh t be different from the original. Needs pain eval in october/november (30 min) Begin slow wean of klonopin in october Problem Noted Date Diagnosed Date Panlobular emphysema 06/16/2017 Tobacco abuse 06/16/2017 Pure hypercholesterolemia 06/16/2017 Screening for colon cancer 06/16/2017 Cervical radiculopathy, chronic 12/21/2016 Lumbago 04/01/2016 Neuropathy 03/31/2016 Anxiety HTN (hypertension) CHF (congestive heart failure) Family History Medical History Relation Name Comments Heart Attack Father Congestive Heart Failure Mother Relation Name Status Comments Father Mother Social History Tobacco Use Types Packs/Day Years Used Date Smoking Tobacco: Every Day Cigarettes Smokeless Tobacco: Never Tobacco Cessation:Counseling Given: No Alcohol Use Standard Drinks/Week Comments Yes 0 [...] Sign Reading Time Taken Comments Blood Pressure 102/58 10/23/2020 12:51 PM CDT Pulse 74 10/23/2020 12:51 PM CDT Temperature 36.6 C (97.9 F) 10/23/2020 12:51 PM CDT Respiratory Rate 16 10/23/2020 12:51 PM CDT Oxygen Saturation 95% 10/23/2020 12:51 PM CDT Inhaled Oxygen Concentration - - Weight 83.1 kg (183 lb 4.8 oz) 10/23/2020 12:51 PM CDT Height 172.7 cm (5' 8 ) 10/23/2020 12:51 PM CDT Body Mass Index 27.87 10/23/2020 12:51 PM CDT Plan of Treatment Health Maintenance Due Date Last Done Comments Hepatitis C Virus (HCV) Screening 1959 TdaP Immunization 1959 Pneumococcal Immunization Combined (1 of 2 - PCV) 1965 Pneumococcal Immunization (5 0+ years) (1 of 2 - PCV) 1978 Colonoscopy 2004 Colorectal Cancer Screening 2004 Cologuard 2009 Immunochemical Fecal Occult Blood 2009 Zoster Immunization (1 of 2) 2009 PSA Discussion 2014 Respiratory Syncytial Virus (RSV) Immunization (Adult) (1 - Risk 60-74 years 1-dose series) 2019 Influenza Immunization (#1) 2024 SARS-COV-2 Immunization ( season) 2024 01/22/2021, 12/25/2020 Hepatitis B Immunization Aged Out No longer eligible based on patient's age to complete this topic Meningococcal Immunization (ACWY) Aged Out No longer eligible b ased on patient's age to complete this topic Rotavirus Immunization Aged Out No lo nger eligible based on patient's age to complete this topic Insurance MEDICA[employer] Care Teams Coroner Transport Technician Relationship Specialty Start Date End Date Edward Singletary MD [address] [address] PCP - General Family Medicine 10/23/20
--- OUTSIDE RECORDS SUMMARY | 2024-07-13 15:18 | XMS_ITS | Referral Summary ---
Author Organization [facility] [employer] Address [address] [place] [address] Care Team Providers Care Rattle Leak And Squeak Repairer Name Role Phone Obed Luna MD Primary Care Provider [phone] [facility] [employer]non-owned Affiliates and Associated Physician Practices is amultiple site organization consisting of ambulatory clinics and hospital sitesin [place], [place], [place] and [place]. This disclosure is being madepursuant to the Care Everywhere program and may not contain all information available regarding this patient. Last updated 18.[facility] [employer] Allergies No known active allergies Medications * Be aware that medications may not be up to date on this document. Alwaysverify current medications with the patient. Medication Sig Dispensed Refills Start Date End Date Status clonazePAM (KLONOPIN) 1 MG tablet 04/15/2017 Active cyclobenzaprine (FLEXERIL) 10 MG tablet 04/16/2017 Active lisinopril (PRINIVIL; ZESTRIL) 10 MG tablet 01/30/2017 Act fatemeh nitroGLYCERIN (NITROSTAT) 0.4 MG tablet 03/20/2017 Active citalopram (CELEXA) 40 MG tablet 12/01/2007 Active fenofibrate (LOFIBRA) 160 MG tablet 01/30/2017 Active spironolactone (ALDACTONE) 25 MG tablet 01/30/2017 Active albuterol HFA (PROAIR HFA) 108 (90 BASE) MCG/ACT inhaler 01/30/2017 Active traMADol (ULTRAM) 50 MG tablet 04/08/2017 Active fluticasone-salmeterol (ADVAIR DISKUS) 250-50 MCG/DOSE inhaler 12/01/2007 Active ibuprofen (MOTRIN) 800 MG tablet 04/01/2017 Active HYDROcodone-acetaminop hen (NORCO) 10-325 MG tablet Take 1 tablet by mouth every 6 hours as needed for Pain Active polyethylene glycol (GOLYTELY) 236 g solution Drink 1/2 of prep at 5pm the night before test. Finish the prep at 4am the day of test. 4000 mL 07/19/2019 Active Social History Tobacco Use Types Packs/Day Years [...] Comments Blood Pressure 117/71 04/19/2017 1:11 PM COMMUNITY RELATIONS REPRESENTATIVE Pulse 79 04/19/2017 1:11 PM COMMUNITY RELATIONS REPRESENTATIVE Temperature - - Respiratory Rate - - Oxygen Saturation - - Inhaled Oxygen Concentration - - Weight 79.8 kg (176 lb) 04/19/2017 1:11 PM COMMUNITY RELATIONS REPRESENTATIVE Height 172.7 cm (5' 8 ) 04/19/2017 1:11 PM COMMUNITY RELATIONS REPRESENTATIVE Body Mass Index 26.76 04/19/2017 1:11 PM COMMUNITY RELATIONS REPRESENTATIVE Plan of Treatment Not on file Care Teams Rattle Leak And Squeak Repairer Relationship Specialty Start Date End Date Obed Luna MD [address] [place] [address] [facility] - General 12/28/16
--- OUTSIDE RECORDS SUMMARY | 2024-07-13 15:18 | XMS_ITS | Clinical Summary ---
Author Organization [facility] [employer] Address [address] [place] [address] Care Team Providers Care Roofer Apprentice Name Role Phone Obed Luna MD Primary Care Provider [phone] Source Comments [facility] [employer],non-owned Affiliates and Associated Physician Practices is amultiple site organization consisting of ambulatory clinics and hospital sitesin [place], [place], [place] and [place]. This disclosure is being madepursuant to the Care Everywhere program and may not contain all information available regarding this patient. Last updated 18.[employer] Allergies No known active allergies Medications * [...] day of test. 4000 mL 07/19/2019 Active Family History Medical History Relation Name Comments Depression Father Relation Name Status Comments Father Social History Tobacco Use Types Packs/Day Years [...] Comments Blood Pressure 117/71 04/19/2017 1:11 PM CLINICAL NEUROPSYCHOLOGIST Pulse 79 04/19/2017 1:11 PM CLINICAL NEUROPSYCHOLOGIST Temperature - - Respiratory Rate - - Oxygen Saturation - - Inhaled Oxygen Concentration - - Weight 79.8 kg (176 lb) 04/19/2017 1:11 PM CLINICAL NEUROPSYCHOLOGIST Height 172.7 cm (5' 8 ) 04/19/2017 1:11 PM CLINICAL NEUROPSYCHOLOGIST Body Mass Index 26.76 04/19/2017 1:11 PM CLINICAL NEUROPSYCHOLOGIST Plan of Treatment Health Maintenance Due Date Last Done Comments COLOGUARD (AGES 45-75) - COL ON CA SCREENING 1959 COLON MONITORING 1959 COLONOSCOPY - COLON CA SCREENING 1959 CT COLONOGRAPHY - COLON CA SCREENING 1959 Colorectal Cancer Screening 1959 FIT - COLON CA SCREENING 1959 FLEX SIG - COLON CA SCREENING 1959 LIPID TESTING 1959 HIV SCREENING 1974 HEPATITIS C SCREENING 05/02/1977 DTAP/TDAP/TD VACCINES (1 - Tdap) 1978 PNEUMOCOCCAL VACCINE 50+ (1 of 2 - PCV) 1978 ZOSTER VACCINE (1 of 2) 2009 COVID-19 VACCINE ( - 2023-2 5 season) 2024 INFLUENZA VACCINE (#1) 2024 AAA SCREENING 2024 DEPRESSION SCREENING 06/07/2024 Respiratory Syncytial Virus (RSV) Vaccine Pt: or over 60 yrs (1 - 1-dose 75+ series) 2034 HEPATITIS B VACCINE Aged Out No longe r eligible based on patient's age to complete this topic HIB VACCINE Aged Out No longer eligi ble based on patient's age to complete this topic HPV VACCINE Aged Out No longer eligi ble based on patient's age to complete this topic MENINGOCOCCAL (Group B) VACCINE Aged Out No longer eligible based on patient's age to complete this topic MENINGOCOCCAL VACCINE Aged Out No thuy manuel eligible based on patient's age to complete this topic Care Teams Roofer Apprentice Relationship Specialty Start Date End Date Obed Luna MD [address] [place] [address] PCP - General 12/28/16
--- OUTSIDE RECORDS SUMMARY | 2024-07-13 15:18 | XMS_ITS | Clinical Summary ---
Author Organization [facility] Address [address] [place] [address] Care Team Providers Care Online Merchandising Coordinator Name Role Phone Unavailable Primary Care Provider Unavailabl e Social History Tobacco Use Types Packs/Day Years Used Date Smoking Tobacco: Never Assessed Sex and Gender Information Value Date Recorded Sex Assigned at Not on file Legal Sex Male 7:35 PM CDT Gender Identity Not on file Sexual Orientation Not on file Plan of Treatment Health Maintenance Due Date Last Done Comments Colorectal Cancer Screening Colonoscopy (10 Years) 1959 Annual Physical 1962 Hepatitis C 1977 DTaP, Tdap and Td Vaccines ( 1 - Tdap) 1978 Zoster Vaccines (1 of 2) 2009 COVID-19 Vaccine ( - 2023-2 5 season) 2024 Influenza Adult (#1) 2024 Pneumococcal Vaccine: 65+ Ye ars (1 of 1 - PCV) 2024 RSV Immunization or 60+ Years (1 - 1-dose 75+ series) 2034 Meningococcal B Vaccine Aged Out No l onger eligible based on patient's age to complete this topic Meningococcal Vaccine Aged Out No thuy manuel eligible based on patient's age to complete this topic Pneumococcal Vaccine: Pediat rics (0 to 5 Years) and At-Risk Patients (6 to 64 Years) Aged Out No longer eligible b ased on patient's age to complete this topic RSV Immunizations Under 20 Months Aged Out No longer eligible based on patient's age to complete this topic
--- OUTSIDE RECORDS SUMMARY | 2024-07-13 15:18 | XMS_ITS | Encounter Summary ---
Author Organization [facility] [place] [address] Phone Care Team Providers Care Diesel Truck Technician Name Role Phone Edward Singletary MD Primary Care Provider [phone] Reason for Visit * Reason Comments Medication Refill Encounter Details Date Type Department Care Team (Late st Contact Info) Description 12/05/2022 Refill [facility] - Family Medicine [facility] [address] [place] [address] Edward Singletary MD [address] [address] Medication Refill Social History Tobacco Use Types [...] Telephone Encounter - Renuka Jensen RMA - 12/07/2022 4:07 PM CDT Phone number not working * Telephone Encounter - Aleksandra Dillon RN - 12/06/2022 12:11 PM CDT No upcoming appts Last OV with PCP 10/23/2020 Medication failed the protocol, provider to review and approve the medication order if appropriate. Requested Prescriptions Pending Prescriptions Disp Refills citalopram (CeleXA) 40 MG Tablet [Pharmacy Med Name: CITALOPRAM 40MG TABLETS] 90 Tablet 3 Sig: TAKE 1 TABLET BY MOUTH DAILY Citalopram (Celexa) (6 Month Refill Only) Protocol Failed - 12/05/2022 11:24 AM Failed - Visit with relevant provider in past 6 months or upcoming 90 days Recent Visits No visits were found meeting these conditions. Showing recent visits within past 182 days and meeting all other requirements Future Appointments No visits were found meeting these conditions. Showing future appointments within next 90 days and meeting all other requirements Failed - Has an encounter in the past 6 months with a depression, anxiety, adjustment disorder, OCD, or PTSD visit diagnosis Passed - Citalopram dose is less than or equal to 40mg / day Passed - Patient has established therapy with Citalopram for at least 6 months documented in this encounter Plan of Treatment Not on file documented as of this encounter Visit Diagnoses Not on filedocumented in this encounter Additional Health Concerns Assessment Noted Time PHQ-9 Depression Total Score: 1 01/25/20 19 1:56 PM CDT documented as of this encounter Care Teams Diesel Truck Technician Relationship Specialty Start Date End Date Edward Singletary MD [address] [place] [address] PCP - General Family Medicine 10/23/20 documented as of this encounter
--- NOTE | 2024-07-13 16:12 | PC.NURSE ---
Pt called for vital signs, no response
--- NOTE | 2024-07-13 17:18 | PC.NURSE ---
Pt called for vital signs for a second time, no response
--- OUTSIDE RECORDS SUMMARY | 2024-07-13 17:31 | XMS_ITS | Clinical Summary ---
Author Organization [facility] Address [address] [place] [address] Care Team Providers Care Loom Setter Name Role Phone Unavailable Primary Care Provider [...]
--- OUTSIDE RECORDS SUMMARY | 2024-07-13 17:31 | XMS_ITS | Referral Summary ---
Author Organization [facility] [employer] Address [address] [place] [address] Care Team Providers Care Dental Tech Name Role Phone Obed Luna MD Primary Care Provider [phone] Source Comments [facility] [employer],non-owned Affiliates and Associated Physician Practices is amultiple site organization consisting of ambulatory clinics and hospital sitesin [place], [place], [place] and [place]. This disclosure is being madepursuant to the Care Everywhere program and may not contain all information available regarding this patient. Last updated 18.[facility] [employer] Allergies No known active allergies Medications * [...] Comments Blood Pressure 117/71 04/19/2017 1:11 PM FRONT DESK MONITOR Pulse 79 04/19/2017 1:11 PM FRONT DESK MONITOR Temperature - - Respiratory Rate - - Oxygen Saturation - - Inhaled Oxygen Concentration - - Weight 79.8 kg (176 lb) 04/19/2017 1:11 PM FRONT DESK MONITOR Height 172.7 cm (5' 8 ) 04/19/2017 1:11 PM FRONT DESK MONITOR Body Mass Index 26.76 04/19/2017 1:11 PM FRONT DESK MONITOR Plan of Treatment Not on file Care Teams Dental Tech Relationship Specialty Start Date End Date Obed Luna MD [address] [place] [address] [facility] - General 12/28/16
--- OUTSIDE RECORDS SUMMARY | 2024-07-13 17:31 | XMS_ITS | Encounter Summary ---
Author Organization [facility] Address [address] [place] [address] Phone Care Team Providers Care Dry Talc Racker Name Role Phone Edward Singletary MD Primary Care Provider [phone] Reason for Visit * Reason Comments Medication Refill Encounter Details Date Type Department Care Team (Late st Contact Info) Description 05/30/2020 Refill [facility] [address] [place] [address] Edward Singletary MD [address] [address] Medication Refill Social History Tobacco Use Types [...] Renuka Jensen RMA - 06/03/2020 8:42 AM CONTAINER WASHER Patient has another provider, due to [employer] ins. AINER WASHER * Telephone Encounter - Opal Lopes RN - 06/03/2020 8:30 AM CST Patient needs appointment per Dr Singletary. AINER WASHER * Telephone Encounter - Christen Medina RN [...] 1 year ago Screening for colon cancer [facility] Edward Fuller MD 1 year ago Essential hypertension [facility] Edward Fuller MD 1 year ago Essential hypertension [facility] Edward Fuller MD 2 years ago Pure hypercholesterolemia [facility] Edward Fuller MD 2 years ago Essential hypertension [facility] Edward Fuller MD Upcoming Appointments ROBOT OPERATOR - Recent and Past Visits Recent Visits [...] Failed - This refill cannot be delegated AINER WASHER documented in this encounter Plan of Treatment Not on file documented as of this encounter Visit Diagnoses Not on filedocumented in this encounter Additional Health Concerns Assessment Noted Time PHQ-9 Depression Total Score: 1 01/25/20 19 1:56 PM CDT documented as of this encounter Care Teams Dry Talc Racker Relationship Specialty Start Date End Date Edward Singletary MD [address] [address] PCP - General Family Medicine 10/23/20 documented as of this encounter
--- OUTSIDE RECORDS SUMMARY | 2024-07-13 17:31 | XMS_ITS | Encounter Summary ---
Author Organization [facility] [place] [address] Phone Care Team Providers Care Patternmaker Bench Name Role Phone Edward Singletary MD Primary Care Provider [phone] Reason for Visit * Reason Comments Medication Refill Encounter Details Date Type Department Care Team (Late st Contact Info) Description 12/05/2022 Refill [facility] - Family Medicine [facility] [address] [place] [address] Edward Singletary MD [address] [address] Medication Refill Social History Tobacco Use Types [...] documented as of this encounter Care Teams Patternmaker Bench Relationship Specialty Start Date End Date Edward Singletary MD [address] [place] [address] PCP - General Family Medicine 10/23/20 documented as of this encounter
--- OUTSIDE RECORDS SUMMARY | 2024-07-13 17:31 | XMS_ITS | Clinical Summary ---
Author Organization [facility] Address [address] [place] [address] Phone Care Team Providers Care Hand Tacker Name Role Phone Edward Singletary MD Primary Care Provider [phone] Allergies No known active allergies Medications spironolactone [...] Insurance MEDICAID [employer] Care Teams Hand Tacker Relationship Specialty Start Date End Date Edward Singletary MD [address] [address] PCP - General Family Medicine 10/23/20
--- OUTSIDE RECORDS SUMMARY | 2024-07-13 17:31 | XMS_ITS | Referral Summary ---
Author Organization [facility] [address] Address [address] [place] [address] Care Team Providers Care Degree Clerk Name Role Phone Be Alegria MD Primary Care Provider [phone] Allergies No known active allergies Medications HYDROcodone-acetam [...] (10/30/2020): Biventricular ICD (implantable cardioverter-defibrillator) in place. [employer] BIV ICD. Dx; CM, CHF. Gen change [...] on file Legal Sex Male 10:55 AM REAL ESTATE REP Gender Identity Not on file Sexual Orientation [...] Plan of Treatment Not on file Insurance [facility] Care Teams Degree Clerk Relationship Specialty Start Date End Date Be Alegria MD PCP - General Family Medicine 08/17/22
--- OUTSIDE RECORDS SUMMARY | 2024-07-13 17:31 | XMS_ITS | Clinical Summary ---
Author Organization [facility] [address] Address [address] [place] [address] Care Team Providers Care Assistant Professor Of Physics Name Role Phone Be Alegria MD Primary Care Provider [phone] Allergies No known active allergies Medications HYDROcodone-acetam [...] (10/30/2020): Biventricular ICD (implantable cardioverter-defibrillator) in place. [employer] BIV ICD. Dx; CM, CHF. Gen change [...] on file Legal Sex Male 10:55 AM WOOD BORER Gender Identity Not on file Sexual Orientation [...] Screen 2024 Well Visit 65+ 2024 Insurance [facility] Care Teams Assistant Professor Of Physics Relationship Specialty Start Date End Date Be Alegria MD PCP - General Family Medicine 08/17/22
--- OUTSIDE RECORDS SUMMARY | 2024-07-13 17:31 | XMS_ITS | Patient Health Summary ---
Author Organization [facility] [employer] Address [address] [facility] [place] [address] Care Team Providers Care Cash Surrender Calculator Name Role Phone Obed Luna MD Primary Care Provider [phone] Note from Formerly named [facility],non-owned Affiliates and Associated Physician Practices is amultiple site organization consisting of ambulatory clinics and hospital sitesin [place], [place], [place] and [place]. This disclosure is being madepursuant to the Care Everywhere program and may not contain all information available regarding this patient. Last updated 18.[facility] [employer] Allergies No known active allergies Medications * [...] Comments Blood Pressure 117/71 04/19/2017 1:11 PM HORSE DOCTOR Pulse 79 04/19/2017 1:11 PM HORSE DOCTOR Temperature - - Respiratory Rate - - Oxygen Saturation - - Inhaled Oxygen Concentration - - Weight 79.8 kg (176 lb) 04/19/2017 1:11 PM HORSE DOCTOR Height 172.7 cm (5' 8 ) 04/19/2017 1:11 PM HORSE DOCTOR Body Mass Index 26.76 04/19/2017 1:11 PM HORSE DOCTOR Care Teams Cash Surrender Calculator Relationship Specialty Start Date End Date Obed Luna MD [address] [place] [address] PCP - General 12/28/16
--- OUTSIDE RECORDS SUMMARY | 2024-07-13 17:31 | XMS_ITS | Clinical Summary ---
Author Organization [facility] [employer] Address [address] [place] [address] Care Team Providers Care Metal Technician Name Role Phone Obed Luna MD Primary Care Provider Source Comments [facility] [employer],non-owned Affiliates and Associated Physician Practices is amultiple site organization consisting of ambulatory clinics and hospital sitesin [place], [place], [place] and [place]. This disclosure is being madepursuant to the Care Everywhere program and may not contain all information available regarding this patient. Last updated 18.[employer] Allergies No known active allergies Medications * [...] Comments Blood Pressure 117/71 04/19/2017 1:[address] [facility]OCATE Pulse 79 04/19/2017 1:[address] [facility]OCATE Temperature - - Respiratory Rate - - Oxygen Saturation - - Inhaled Oxygen Concentration - - Weight 79.8 kg (176 lb) 04/19/2017 1:[address] [facility]ATE Height 172.7 cm (5' 8 ) 04/19/2017 1:[address] [facility]OCATE Body Mass Index 26.76 04/19/2017 1:[address] [facility] Plan of Treatment Health Maintenance Due Date [...] age to complete this topic Care Teams Metal Technician Relationship Specialty Start Date End Date Obed Luna MD [address] [place] [address] PCP - General 12/28/16
== END 2024-07-13 17:46 | disposition left against medical advice (07) ==
LOC: ANHED 17:30
PROVIDERS: PCP Family Medicine
DX: M54.2 Cervicalgia (principal)
CPT/HCPCS: 99199

== ENCOUNTER 2024-07-14 00:55 | Emergency (ER) | payer OTHER, SELFPAY ==
[2024-07-14 00:55] VITALS: BP 130/67; PULSE 85; RESP 16; TEMP 36.7; O2SAT 98
--- OUTSIDE RECORDS SUMMARY | 2024-07-14 00:57 | XMS_ITS | Encounter Summary ---
Author Organization [facility] Address [place] [address] Phone Care Team Providers Care Studio Sales Associate Name Role Phone Edward Singletary MD Primary Care Provider [phone] Reason for Visit * Reason Comments Medication Refill Encounter Details Date Type Department Care Team (Late st Contact Info) Description 12/05/2022 Refill [facility] - Family Medicine [facility] [address] [place] [address] Edward Singletary MD [address] [address] Medication Refill Social History Tobacco Use Types [...] documented as of this encounter Care Teams Studio Sales Associate Relationship Specialty Start Date End Date Edward Singletary MD [address] [place] [address] PCP - General Family Medicine 10/23/20 documented as of this encounter
--- OUTSIDE RECORDS SUMMARY | 2024-07-14 00:57 | XMS_ITS | Patient Health Summary ---
Author Organization [facility] Address [address] [place] [address] Care Team Providers Care Explosive Operator Name Role Phone Obed Luna MD Primary Care Provider [phone] [facility],non-owned Affiliates and Associated Physician Practices is amultiple site organization consisting of ambulatory clinics and hospital sitesin [place], [place], [place] and [place]. This disclosure is being madepursuant to the Care Everywhere program and may not contain all information available regarding this patient. Last updated 18.[facility] Allergies No known active allergies Medications * [...] Comments Blood Pressure 117/71 04/19/2017 1:11 PM TRAINS DISPATCHER SUPERVISOR Pulse 79 04/19/2017 1:11 PM TRAINS DISPATCHER SUPERVISOR Temperature - - Respiratory Rate - - Oxygen Saturation - - Inhaled Oxygen Concentration - - Weight 79.8 kg (176 lb) 04/19/2017 1:11 PM TRAINS DISPATCHER SUPERVISOR Height 172.7 cm (5' 8 ) 04/19/2017 1:11 PM TRAINS DISPATCHER SUPERVISOR Body Mass Index 26.76 04/19/2017 1:11 PM TRAINS DISPATCHER SUPERVISOR Care Teams Explosive Operator Relationship Specialty Start Date End Date Obed Luna MD [address] [place] [address] PCP - General 12/28/16
--- OUTSIDE RECORDS SUMMARY | 2024-07-14 00:57 | XMS_ITS | Clinical Summary ---
Author Organization [facility] Address [address] [place] [address] Phone Care Team Providers Care Shovel Operator Name Role Phone Edward Singletary MD Primary Care Provider [phone] Allergies No known active allergies Medications spironolactone [...] Insurance [employer] Care Teams Shovel Operator Relationship Specialty Start Date End Date Edward Singletary MD [address] [address] PCP - General Family Medicine 10/23/20
--- OUTSIDE RECORDS SUMMARY | 2024-07-14 00:57 | XMS_ITS | Clinical Summary ---
Author Organization [facility] [address] Address [address] [place] [address] Care Team Providers Care Quality Process Auditor Name Role Phone Be Alegria MD Primary Care Provider [phone] Allergies No known active allergies Medications HYDROcodone-acetam [...] (10/30/2020): Biventricular ICD (implantable cardioverter-defibrillator) in place. [employer] BIV ICD. Dx; CM, CHF. 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
--- OUTSIDE RECORDS SUMMARY | 2024-07-14 00:57 | XMS_ITS | Clinical Summary ---
Author Organization [facility] Address [address] [place] [address] Care Team Providers Care Customer Service Correspondence Clerk Name Role Phone Unavailable Primary Care Provider [...]
--- OUTSIDE RECORDS SUMMARY | 2024-07-14 00:57 | XMS_ITS | Referral Summary ---
Author Organization [facility] [employer] Address [address] [place] [address] Care Team Providers Care Hospital Account Manager Name Role Phone Obed Luna MD Primary Care Provider [phone] Source Comments [facility] [employer],non-owned Affiliates and Associated Physician Practices is amultiple site organization consisting of ambulatory clinics and hospital sitesin [place], [place], [place] and [place]. This disclosure is being madepursuant to the Care Everywhere program and may not contain all information available regarding this patient. Last updated 18.[facility] [employer] Allergies No known active allergies Medications * [...] Comments Blood Pressure 117/71 04/19/2017 1:11 PM FREELANCE INTERPRETER/TRANSLATOR Pulse 79 04/19/2017 1:11 PM FREELANCE INTERPRETER/TRANSLATOR Temperature - - Respiratory Rate - - Oxygen Saturation - - Inhaled Oxygen Concentration - - Weight 79.8 kg (176 lb) 04/19/2017 1:11 PM FREELANCE INTERPRETER/TRANSLATOR Height 172.7 cm (5' 8 ) 04/19/2017 1:11 PM FREELANCE INTERPRETER/TRANSLATOR Body Mass Index 26.76 04/19/2017 1:11 PM FREELANCE INTERPRETER/TRANSLATOR Plan of Treatment Not on file Care Teams Hospital Account Manager Relationship Specialty Start Date End Date Obed Luna MD [address] [place] [address] [facility] - General 12/28/16
--- OUTSIDE RECORDS SUMMARY | 2024-07-14 00:57 | XMS_ITS | Encounter Summary ---
Author Organization [facility] Address [address] [place] [address] Phone Care Team Providers Care Hazardous Materials Analyst Name Role Phone Edward Singletary MD Primary Care Provider [phone] Reason for Visit * Reason Comments Medication Refill Encounter Details Date Type Department Care Team (Late st Contact Info) Description 05/30/2020 [facility] [address] [place] [address] Edward Singletary MD [address] [address] Medication Refill Social History Tobacco Use Types [...] Renuka Jensen RMA - 06/03/2020 8:42 AM CLINICAL DOCUMENTATION SPEC Patient has another provider, due to [employer] ins. ICAL DOCUMENTATION SPEC * Telephone Encounter - Opal Lopes RN - 06/03/2020 8:30 AM CST Patient needs appointment per Dr Singletary. ICAL DOCUMENTATION SPEC * Telephone Encounter - Chirsten Medina RN - 06/01/2020 1:27 PM CST [...] 1 year ago Screening for colon cancer [facility] Edward Fuller MD 1 year ago Essential hypertension [facility] Edward Fuller MD 1 year ago Essential hypertension [facility] Edward Fuller MD 2 years ago Pure hypercholesterolemia [facility] Edward Fuller MD 2 years ago Essential hypertension [facility] Edward Fuller MD Upcoming Appointments PLASTICS BENCH MECHANIC - Recent and Past Visits Recent Visits [...] Failed - This refill cannot be delegated ICAL DOCUMENTATION SPEC documented in this encounter Plan of Treatment Not on file documented as of this encounter Visit Diagnoses Not on filedocumented in this encounter Additional Health Concerns Assessment Noted Time PHQ-9 Depression Total Score: 1 01/25/20 19 1:56 PM CDT documented as of this encounter Care Teams Hazardous Materials Analyst Relationship Specialty Start Date End Date Edward Singletary MD [address] [address] PCP - General Family Medicine 10/23/20 documented as of this encounter
--- OUTSIDE RECORDS SUMMARY | 2024-07-14 00:57 | XMS_ITS | Clinical Summary ---
Author Organization [facility] [employer] Address [address] [place] [address] Care Team Providers Care Ota Name Role Phone Obed Luna MD Primary Care Provider [phone] Source Comments [facility] [employer],non-owned Affiliates and Associated Physician Practices is amultiple site organization consisting of ambulatory clinics and hospital sitesin [place], [place], [place] and [place]. This disclosure is being madepursuant to the Care Everywhere program and may not contain all information available regarding this patient. Last updated [email or web address] Allergies No known active allergies Medications * [...] Comments Blood Pressure 117/71 04/19/2017 1:11 PM PUBLIC HEALTH TECHNOLOGIST Pulse 79 04/19/2017 1:11 PM PUBLIC HEALTH TECHNOLOGIST Temperature - - Respiratory Rate - - Oxygen Saturation - - Inhaled Oxygen Concentration - - Weight 79.8 kg (176 lb) 04/19/2017 1:11 PM PUBLIC HEALTH TECHNOLOGIST Height 172.7 cm (5' 8 ) 04/19/2017 1:11 PM PUBLIC HEALTH TECHNOLOGIST Body Mass Index 26.76 04/19/2017 1:11 PM PUBLIC HEALTH TECHNOLOGIST Plan of Treatment Health Maintenance Due Date [...] age to complete this topic Care Teams Ota Relationship Specialty Start Date End Date Obed Luna MD [address] [place] [address] PCP - General 12/28/16
--- OUTSIDE RECORDS SUMMARY | 2024-07-14 00:57 | XMS_ITS | Referral Summary ---
Author Organization [facility] [address] Address [address] [place] [address] Care Team Providers Care Portable Machine Sander Name Role Phone Be Alegria MD Primary Care Provider [phone] Allergies No known active allergies Medications HYDROcodone-acetam [...] (10/30/2020): Biventricular ICD (implantable cardioverter-defibrillator) in place. [employer] BIV ICD. Dx; CM, CHF. 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
[2024-07-14 03:19] VITALS: BP 117/74; PULSE 88; RESP 17; O2SAT 97
--- OUTSIDE RECORDS SUMMARY | 2024-07-14 03:24 | XMS_ITS | Clinical Summary ---
Author Organization [facility] [address] Address [address] [place] [address] Care Team Providers Care Game Farm Helper Name Role Phone Be Alegria MD Primary Care Provider [phone] Allergies No known active allergies Medications HYDROcodone-acetam [...] (10/30/2020): Biventricular ICD (implantable cardioverter-defibrillator) in place. [employer] BIV ICD. Dx; CM, CHF. 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
--- OUTSIDE RECORDS SUMMARY | 2024-07-14 03:24 | XMS_ITS | Clinical Summary ---
Author Organization [facility] Address [address] [place] [address] Phone Care Team Providers Care Sample Checker Name Role Phone Edward Singletary MD Primary Care Provider [phone] Allergies No known active allergies Medications spironolactone [...] Insurance MEDICAID [facility] [employer] Care Teams Sample Checker Relationship Specialty Start Date End Date Edward Singletary MD [address] [address] PCP - General Family Medicine 10/23/20
--- OUTSIDE RECORDS SUMMARY | 2024-07-14 03:24 | XMS_ITS | Referral Summary ---
Author Organization [facility] [employer] Address [address] [place] [address] Care Team Providers Care Cut Off Machine Helper Name Role Phone Obed Luna MD Primary Care Provider [phone] Source Comments [facility] [employer],non-owned Affiliates and Associated Physician Practices is amultiple site organization consisting of ambulatory clinics and hospital sitesin [place], [place], [place] and [place]. This disclosure is being madepursuant to the Care Everywhere program and may not contain all information available regarding this patient. Last updated 18.[facility] [employer] Allergies No known active allergies Medications * [...] Comments Blood Pressure 117/71 04/19/2017 1:11 PM AREA CLEANER Pulse 79 04/19/2017 1:11 PM AREA CLEANER Temperature - - Respiratory Rate - - Oxygen Saturation - - Inhaled Oxygen Concentration - - Weight 79.8 kg (176 lb) 04/19/2017 1:11 PM AREA CLEANER Height 172.7 cm (5' 8 ) 04/19/2017 1:11 PM AREA CLEANER Body Mass Index 26.76 04/19/2017 1:11 PM AREA CLEANER Plan of Treatment Not on file Care Teams Cut Off Machine Helper Relationship Specialty Start Date End Date Obed Luna MD [address] [place] [address] [facility] - General 12/28/16
--- OUTSIDE RECORDS SUMMARY | 2024-07-14 03:24 | XMS_ITS | Clinical Summary ---
Author Organization [facility] [employer] Address [address] [place] [address] Care Team Providers Care Associate Veterinarian Name Role Phone Obed Luna MD Primary Care Provider Source Comments [facility] [employer],non-owned Affiliates and Associated Physician Practices is amultiple site organization consisting of ambulatory clinics and hospital sitesin [place], [place], [place] and [place]. This disclosure is being madepursuant to the Care Everywhere program and may not contain all information available regarding this patient. Last updated 18.[employer] Allergies No known active allergies Medications * [...] Comments Blood Pressure 117/71 04/19/2017 1:11 PM DATACAP DEVELOPER Pulse 79 04/19/2017 1:11 PM DATACAP DEVELOPER Temperature - - Respiratory Rate - - Oxygen Saturation - - Inhaled Oxygen Concentration - - Weight 79.8 kg (176 lb) 04/19/2017 1:11 PM DATACAP DEVELOPER Height 172.7 cm (5' 8 ) 04/19/2017 1:11 PM DATACAP DEVELOPER Body Mass Index 26.76 04/19/2017 1:11 PM DATACAP DEVELOPER Plan of Treatment Health Maintenance Due Date [...] age to complete this topic Care Teams Associate Veterinarian Relationship Specialty Start Date End Date Obed Luna MD [address] [place] [address] PCP - General 12/28/16
--- OUTSIDE RECORDS SUMMARY | 2024-07-14 03:24 | XMS_ITS | Clinical Summary ---
Author Organization [facility] Address [address] [place] [address] Care Team Providers Care Manager Name Role Phone Unavailable Primary Care Provider [...]
--- OUTSIDE RECORDS SUMMARY | 2024-07-14 03:24 | XMS_ITS | Referral Summary ---
Author Organization [facility] [address] Address [address] [place] [address] Care Team Providers Care Forest Fire Specialist Supervisor Name Role Phone Be Alegria MD Primary Care Provider [phone] Allergies No known active allergies Medications HYDROcodone-acetam [...] (10/30/2020): Biventricular ICD (implantable cardioverter-defibrillator) in place. [employer] BIV ICD. Dx; CM, CHF. 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
--- OUTSIDE RECORDS SUMMARY | 2024-07-14 03:24 | XMS_ITS | Encounter Summary ---
Author Organization [facility] [place] [address] Phone Care Team Providers Care Multiple Knife Edge Trimmer Operator Name Role Phone Edward Singletary MD Primary Care Provider [phone] Reason for Visit * Reason Comments Medication Refill Encounter Details Date Type Department Care Team (Late st Contact Info) Description 12/05/2022 Refill [facility] - Family Medicine [facility] [address] [place] [address] Edward Singletary MD [address] [address] Medication Refill Social History Tobacco Use Types [...] documented as of this encounter Care Teams Multiple Knife Edge Trimmer Operator Relationship Specialty Start Date End Date Edward Singletary MD [address] [place] [address] PCP - General Family Medicine 10/23/20 documented as of this encounter
--- OUTSIDE RECORDS SUMMARY | 2024-07-14 03:24 | XMS_ITS | Encounter Summary ---
Author Organization [facility] Address [address] [place] [address] Phone Care Team Providers Care Yard Inspector Name Role Phone Edward Singletary MD Primary Care Provider [phone] Reason for Visit * Reason Comments Medication Refill Encounter Details Date Type Department Care Team (Late st Contact Info) Description [facility] [address] [place] [address] Edward Singletary MD [address] [address] Medication Refill Social History Tobacco Use Types [...] Renuka Jensen RMA - 06/03/2020 8:42 AM WAREHOUSING TECHNICIAN Patient has another provider, due to [employer] ins. HOUSING TECHNICIAN * Telephone Encounter - Opal Lopes RN - 06/03/2020 8:30 AM CST Patient needs appointment per Dr Singletary. HOUSING TECHNICIAN * Telephone Encounter - Christen Medina [...] 1 year ago Screening for colon cancer [facility] Edward Fuller MD 1 year ago Essential hypertension [facility] Edward Fuller MD 1 year ago Essential hypertension [facility] Edward Fuller MD 2 years ago Pure hypercholesterolemia [facility] Edward Fuller MD 2 years ago Essential hypertension [facility] Edward Fuller MD Upcoming Appointments ENVIRONMENTAL SCIENTIST - Recent and Past Visits Recent Visits [...] Failed - This refill cannot be delegated HOUSING TECHNICIAN documented in this encounter Plan of Treatment Not on file documented as of this encounter Visit Diagnoses Not on filedocumented in this encounter Additional Health Concerns Assessment Noted Time PHQ-9 Depression Total Score: 1 01/25/20 19 1:56 PM CDT documented as of this encounter Care Teams Yard Inspector Relationship Specialty Start Date End Date Edward Singletary MD [address] [address] PCP - General Family Medicine 10/23/20 documented as of this encounter
--- OUTSIDE RECORDS SUMMARY | 2024-07-14 03:24 | XMS_ITS | Patient Health Summary ---
Author Organization [facility] [employer] Address [address] [place] [address] Care Team Providers Care Engineer Technical Staff Name Role Phone Obed Luna MD Primary Care Provider [phone] Note from [facility],non-owned Affiliates and Associated Physician Practices is amultiple site organization consisting of ambulatory clinics and hospital sitesin [place], [place], [place] and [place]. This disclosure is being madepursuant to the Care Everywhere program and may not contain all information available regarding this patient. Last updated 18.[facility] [employer] Allergies No known active allergies Medications * [...] Comments Blood Pressure 117/71 04/19/2017 1:11 PM TRAFFIC CONTROL OPERATOR Pulse 79 04/19/2017 1:11 PM TRAFFIC CONTROL OPERATOR Temperature - - Respiratory Rate - - Oxygen Saturation - - Inhaled Oxygen Concentration - - Weight 79.8 kg (176 lb) 04/19/2017 1:11 PM TRAFFIC CONTROL OPERATOR Height 172.7 cm (5' 8 ) 04/19/2017 1:11 PM TRAFFIC CONTROL OPERATOR Body Mass Index 26.76 04/19/2017 1:11 PM TRAFFIC CONTROL OPERATOR Care Teams Engineer Technical Staff Relationship Specialty Start Date End Date Obed Luna MD [address] [place] [address] PCP - General 12/28/16
--- NOTE | 2024-07-14 03:42 | ED_ITS ---
HPI - General Adult General Chief complaint: Neck Pain/Injury Stated complaint: neck pain Time Seen by Provider: 07/14/24 03:09 History of Present Illness HPI narrative: This 64 old male with a history of neck pain presenting neck pain. Pain is left side of his neck. It is a sharp stabbing pain when he tries to move. It radiates into his shoulder. He has been seen in the ED this multiple times as well as Neurosurgery. Has not attended physical therapy yet. He took Tylenol today but not his typical 10 mg hydrocodones. No fevers chills weakness to any extremity chest pain KATHLEEN. Related Data Home Medications ?Medication ?Instructions ?Recorded ?Confirmed ?Last Taken ?Type hydrocodone 10 mg-acetaminophen tablet 10/21/20 Unknown History 325 mg tablet buspirone 15 mg tablet 15 mg PO BID 03/16/24 Unknown History citalopram 40 mg tablet 20 mg PO DAILY 03/16/24 Unknown History famotidine 40 mg tablet 40 mg PO DAILY 03/16/24 Unknown History lisinopril 20 mg tablet 20 mg PO DAILY 03/16/24 Unknown History simvastatin 20 mg tablet 20 mg PO DAILY 03/16/24 Unknown History Allergies Allergy/AdvReac Type Severity Reaction Status Date / Time No Known Allergies Allergy Verified 03/16/24 11:42 [facility] Past Medical History Medical History Arthritis Chronic neck pain Social History Social History Social History: Patient denies alcohol use, is a heavy smoker and uses marijuana daily Smoking packs per day: 2 Smoking cigarettes per day: 40.0 Smoking status: Current every day smoker Tobacco type: cigarettes Alcohol intake: current Alcohol use details: beer Substance use type: does not use Exam Narrative: APPEARANCE: No apparent distress. Head: atraumatic. EYES: EOMI, NOSE: Atraumatic NECK: tenderness palpation over left paracervical left trapezius muscles. Muscles are tense. RESPIRATORY: No increased rate of breathing CTAB CARDIOVASCULAR: RRR, ABDOMINAL: Non-distended MUSCULOSKELETAl: No obvious deformities NEURO: Alert. focal exam left upper extremity revealed no weakness or loss of sensation. Digital Commentator strength intact cap refill less than 2 seconds and pulses are strong. SKIN:: Warm, dry. Normal color PSYCHIATRIC: Normal affect Course Vital Signs Vital signs: Vital Signs Temperature 98.1 F 07/14/24 00:55 Pulse Rate 85 07/14/24 00:55 Respiratory Rate 16 07/14/24 00:55 Blood Pressure 130/67 07/14/24 00:55 Pulse Oximetry 98 07/14/24 00:55 Oxygen Delivery Room Air 07/14/24 00:55 Temperature 98.1 F 07/14/24 00:55 Pulse Rate 88 07/14/24 03:19 Respiratory Rate 17 07/14/24 03:19 Blood Pressure 117/74 07/14/24 03:19 Pulse Oximetry 97 07/14/24 03:19 Oxygen Delivery Room Air 07/14/24 00:55 Medical Decision Making MDM Narrative Medical decision making narrative: -Course: 64-year-old male presenting acute on chronic neck pain. He has not taken his home dose of hydrocodone today. Patient given Toradol Valium oxycodone as he has taken full dose of Tylenol. Patient be discharged follow-up with primary care physician -DDX includes but is not limited to: muscle strain, muscle spasm arthritis . Vital Signs Vital Signs: Vital Signs Temperature 98.1 F 07/14/24 00:55 Pulse Rate 85 07/14/24 00:55 Respiratory Rate 16 07/14/24 00:55 Blood Pressure 130/67 07/14/24 00:55 Pulse Oximetry 98 07/14/24 00:55 Oxygen Delivery Room Air 07/14/24 00:55 Temperature 98.1 F 07/14/24 00:55 Pulse Rate 88 07/14/24 03:19 Respiratory Rate 17 07/14/24 03:19 Blood Pressure 117/74 07/14/24 03:19 Pulse Oximetry 97 07/14/24 03:19 Oxygen Delivery Room Air 07/14/24 00:55 Discharge Plan Discharge Clinical Impression: Chronic neck pain Patient Disposition: Home, Self-Care Condition: Stable Instructions: Antibiotic Form, Neck Pain (ED) Additional Instructions: Please follow-up with your primary care physician for further management. Patient Language: Vietnamese Prescriptions: No Action famotidine 40 mg tablet 40 mg PO DAILY lisinopril 20 mg tablet 20 mg PO DAILY citalopram 40 mg tablet 20 mg PO DAILY simvastatin 20 mg tablet 20 mg PO DAILY buspirone 15 mg tablet 15 mg PO BID meloxicam 7.5 mg tablet 7.5 mg PO DAILY Qty: 30 2RF hydrocodone-acetaminophen 10-325 mg tablet cyclobenzaprine 10 mg tablet 10 mg PO TID PRN (Reason: muscle spasm) Qty: 14 0RF Follow-up/Referrals: Be Alegria MD [Primary Care Provider] - 1 Week (Neck pain )
[2024-07-14] MEDS: KETOROLAC 30 MG/ML VIAL (*BKC) IM (04:19)
[2024-07-14] MEDS: diazePAM INJ (*CRX) 10 MG/2 ML SYRINGE 5 MG IM (04:20)
[2024-07-14] MEDS: oxyCODONE HCL (*CRX) 5 MG TAB IR 10 MG PO (04:20)
== END 2024-07-14 04:33 | disposition home or self-care (01) ==
PROVIDERS: Emergency Provider Emergency Medicine; PCP Family Medicine
DX: M54.2 Cervicalgia (principal); G89.29 Other chronic pain; F17.210 Nicotine dependence, cigarettes, uncomplicated
CPT/HCPCS: 96372; 99284; A9270; J1885; J3360

== ENCOUNTER 2024-07-18 15:37 | Outpatient (CLI) | payer OTHER, SELFPAY ==
--- NOTE | ~2024-07-18 | XR_ITS ---
HISTORY: NECK PAIN;RADICULOPATHY;CERVICALGIA COMPARISON: Reference is made to a CT examination of the cervical spine dated 10/09/[address] ain films of the cervical spine dated 08/20/2021 TECHNIQUE: 3 views of the cervical spine were performed FINDINGS: Visualization of the cervical spine to the superior endplate of T1. Straightening and slight reversal of the normal curvature of the cervical spine is identified. 3.9 mm of anterolisthesis of C2 onto C3. Significant degenerative disease with osteophyte formation, disc space narrowing, and endplate change s. This appearance is unchanged dating back to 08/20/2021. No prevertebral soft tissue swelling is appreciated. No acute compression fracture is noted. The dens is equidistant between the pillars, without asymmetry. Air column within the trachea is midline. The visualized portions of the bilateral upper lung rivera are unremarkable. IMPRESSION: Stable plain film evaluation of the cervical spine, as detailed above. Reviewed, dictated and finalized at location A. BOARD ERECTOR HELPER
--- OUTSIDE RECORDS SUMMARY | 2024-07-18 16:15 | XMS_ITS | Clinical Summary ---
Author Organization [facility] [address] Address [address] [place] [address] Care Team Providers Care Annual Giving Director Name Role Phone Be Alegria MD Primary Care Provider [phone] Allergies No known active allergies Medications HYDROcodone-acetam [...] (10/30/2020): Biventricular ICD (implantable cardioverter-defibrillator) in place. [email or web address] BIV ICD. Dx; CM, CHF. 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
--- OUTSIDE RECORDS SUMMARY | 2024-07-18 16:15 | XMS_ITS | Clinical Summary ---
Author Organization [facility] Address [address] [place] [address] Care Team Providers Care Director Of Consulting Services Name Role Phone Unavailable Primary Care Provider [...]
--- OUTSIDE RECORDS SUMMARY | 2024-07-18 16:15 | XMS_ITS | Referral Summary ---
Author Organization [facility] [address] Address [address] [place] [address] Care Team Providers Care Pipe Bowl Paint Trimmer Name Role Phone Be Alegria MD Primary Care Provider [phone] Allergies No known active allergies Medications HYDROcodone-acetam [...] (10/30/2020): Biventricular ICD (implantable cardioverter-defibrillator) in place. [employer] BIV ICD. Dx; CM, CHF. Gen change [...] on file Legal Sex Male 10:[address]PERVISOR Gender Identity Not on file Sexual Orientation [...] Plan of Treatment Not on file Insurance [facility] Care Teams Pipe Bowl Paint Trimmer Relationship Specialty Start Date End Date Be Alegria MD PCP - General Family Medicine 08/17/22
--- OUTSIDE RECORDS SUMMARY | 2024-07-18 16:15 | XMS_ITS | Encounter Summary ---
Author Organization [facility] Address [place] [address] Phone Care Team Providers Care Grounds Maintenance Worker Name Role Phone Edward Singletary MD Primary Care Provider [phone] Reason for Visit * Reason Comments Medication Refill Encounter Details Date Type Department Care Team (Late st Contact Info) Description 12/05/2022 Refill [facility] - Family Medicine [facility] [address] [place] [address] Edward Singletary MD [address] [address] Medication Refill Social History Tobacco Use Types [...] documented as of this encounter Care Teams Grounds Maintenance Worker Relationship Specialty Start Date End Date Edward Singletary MD [address] [place] [address] PCP - General Family Medicine 10/23/20 documented as of this encounter
--- OUTSIDE RECORDS SUMMARY | 2024-07-18 16:16 | XMS_ITS | Referral Summary ---
Author Organization [facility] Address [address] [place] [address] Care Team Providers Care Maintenance Shop Manager Name Role Phone Obed Luna MD Primary Care Provider [phone] Source Comments [facility],non-owned Affiliates and Associated Physician Practices is amultiple site organization consisting of ambulatory clinics and hospital sitesin [place], [place], [place] and [place]. This disclosure is being madepursuant to the Care Everywhere program and may not contain all information available regarding this patient. Last updated 18.[facility] Allergies No known active allergies Medications * [...] Comments Blood Pressure 117/71 04/19/2017 1:11 PM ASSISTANT FOOTBALL COACH Pulse 79 04/19/2017 1:11 PM ASSISTANT FOOTBALL COACH Temperature - - Respiratory Rate - - Oxygen Saturation - - Inhaled Oxygen Concentration - - Weight 79.8 kg (176 lb) 04/19/2017 1:11 PM ASSISTANT FOOTBALL COACH Height 172.7 cm (5' 8 ) 04/19/2017 1:11 PM ASSISTANT FOOTBALL COACH Body Mass Index 26.76 04/19/2017 1:11 PM ASSISTANT FOOTBALL COACH Plan of Treatment Not on file Care Teams Maintenance Shop Manager Relationship Specialty Start Date End Date Obed Luna MD [address] [place] [address] [facility] - General 12/28/16
--- OUTSIDE RECORDS SUMMARY | 2024-07-18 16:16 | XMS_ITS | Clinical Summary ---
Author Organization [facility] Address [address] [place] [address] Phone Care Team Providers Care Profiler Operator Name Role Phone Edward Singletary MD Primary Care Provider [phone] Allergies No known active allergies Medications spironolactone [...] Insurance MEDICAID [employer] Care Teams Profiler Operator Relationship Specialty Start Date End Date Edward Singletary MD [address] [address] PCP - General Family Medicine 10/23/20
--- OUTSIDE RECORDS SUMMARY | 2024-07-18 16:16 | XMS_ITS | Patient Health Summary ---
Author Organization [facility] Address [address] [place] [address] Care Team Providers Care Sand Technologist Name Role Phone Obed Luna MD Primary Care Provider [phone] Note from [facility],non-owned Affiliates and Associated Physician Practices is amultiple site organization consisting of ambulatory clinics and hospital sitesin [place], [place], [place] and [place]. This disclosure is being madepursuant to the Care Everywhere program and may not contain all information available regarding this patient. Last updated 18.[facility] Allergies No known active allergies Medications * [...] Comments Blood Pressure 117/71 04/19/2017 1:11 PM MACHINE FOLDER Pulse 79 04/19/2017 1:11 PM MACHINE FOLDER Temperature - - Respiratory Rate - - Oxygen Saturation - - Inhaled Oxygen Concentration - - Weight 79.8 kg (176 lb) 04/19/2017 1:11 PM MACHINE FOLDER Height 172.7 cm (5' 8 ) 04/19/2017 1:11 PM MACHINE FOLDER Body Mass Index 26.76 04/19/2017 1:11 PM MACHINE FOLDER Care Teams Sand Technologist Relationship Specialty Start Date End Date Obed Luna MD [address] [place] [address] PCP - General 12/28/16
--- OUTSIDE RECORDS SUMMARY | 2024-07-18 16:16 | XMS_ITS | Clinical Summary ---
Author Organization [facility] Address [address] [place] [address] Care Team Providers Care Printing Machine Mechanic Name Role Phone Obed Luna MD Primary Care Provider Source Comments [facility],non-owned Affiliates and Associated Physician Practices is amultiple site organization consisting of ambulatory clinics and hospital sitesin [place], [place], [place] and [place]. This disclosure is being madepursuant to the Care Everywhere program and may not contain all information available regarding this patient. Last updated 18.[facility] Allergies No known active allergies Medications * [...] Comments Blood Pressure 117/71 04/19/2017 1:11 PM JUICE TESTER Pulse 79 04/19/2017 1:11 PM JUICE TESTER Temperature - - Respiratory Rate - - Oxygen Saturation - - Inhaled Oxygen Concentration - - Weight 79.8 kg (176 lb) 04/19/2017 1:11 PM JUICE TESTER Height 172.7 cm (5' 8 ) 04/19/2017 1:11 PM JUICE TESTER Body Mass Index 26.76 04/19/2017 1:11 PM JUICE TESTER Plan of Treatment Health Maintenance Due Date [...] age to complete this topic Care Teams Printing Machine Mechanic Relationship Specialty Start Date End Date Obed Luna MD [address] [place] [address] PCP - General 12/28/16
--- OUTSIDE RECORDS SUMMARY | 2024-07-18 16:16 | XMS_ITS | Encounter Summary ---
Author Organization [facility] Address [address] [place] [address] Phone Care Team Providers Care Substation Operator Helper Generation Name Role Phone Edward Singletary MD Primary Care Provider Reason for Visit * Reason Comments Medication Refill Encounter Details Date Type Department Care Team (Late st Contact Info) Description 05/30/[facility] [address] [place], [place] [address] Edward Singletary MD [address] [address] Medication Refill Social History Tobacco Use Types [...] Renuka Jensen RMA - 06/03/2020 8:42 AM SERVICE OPERATIONS MANAGER Patient has another provider, due to [employer]. ICE OPERATIONS MANAGER * Telephone Encounter - Opal Lopes RN - 06/03/2020 8:30 AM CST Patient needs appointment per Dr Singletary. ICE OPERATIONS MANAGER * Telephone Encounter - Christen Medina RN [...] 1 year ago Screening for colon cancer [facility] Edward Fuller MD 1 year ago Essential hypertension [facility] Edward Fuller MD 1 year ago Essential hypertension [facility] Edward Fuller MD 2 years ago Pure hypercholesterolemia [facility] Edward Fuller MD 2 years ago Essential hypertension [facility] Edward Fuller MD Upcoming Appointments MANAGER [employer] - Recent and Past Visits Recent Visits [...] Failed - This refill cannot be delegated ICE OPERATIONS MANAGER documented in this encounter Plan of Treatment Not on file documented as of this encounter Visit Diagnoses Not on filedocumented in this encounter Additional Health Concerns Assessment Noted Time PHQ-9 Depression Total Score: 1 01/25/20 19 1:56 PM CDT documented as of this encounter Care Teams Substation Operator Helper Generation Relationship Specialty Start Date End Date Edward Singletary MD [address] [address] PCP - General Family Medicine 10/23/20 documented as of this encounter
== END 2024-07-18 15:38 | disposition home or self-care (01) ==
LOC: ANHIMG 15:43
PROVIDERS: PCP Family Medicine; Visit Provider Registered Nurse
DX: S16.1XXA Strain of muscle, fascia and tendon at neck level, initial encounter (principal); X58.XXXA Exposure to other specified factors, initial encounter; M54.12 Radiculopathy, cervical region
CPT/HCPCS: 72040

== ENCOUNTER 2025-01-22 00:34 | Emergency (ER) | payer OTHER, SELFPAY ==
[2025-01-22 00:35] VITALS: BP 123/77; PULSE 93; RESP 16; TEMP 36.8; O2SAT 97
--- OUTSIDE RECORDS SUMMARY | 2025-01-22 00:36 | XMS_ITS | Clinical Summary ---
Author Organization [facility] Address [address] [place] [address] Care Team Providers Care Director Emergency Department Name Role Phone Unavailable Primary Care Provider [...] Colorectal Cancer Screening Colonoscopy (10 Years) 1959 Hepatitis C 1977 DTaP, Tdap and Td Vaccines ( 1 - Tdap) 1978 Pneumococcal Vaccine: 50+ Ye ars (1 of 1 - PCV) 2009 Zoster Vaccines (1 of 2) 2009 COVID-19 Vaccine ( - 2023-2 5 season) 2024 RSV Immunization or 60+ Years (1 [...]
--- OUTSIDE RECORDS SUMMARY | 2025-01-22 00:36 | XMS_ITS | Encounter Summary ---
Author Organization [facility] Address [address] [place] [address] Phone Care Team Providers Care Mental Health Tech Name Role Phone Edward Singletary MD Primary Care Provider [phone] Reason for Visit * Reason Comments Medication Refill Encounter Details Date Type Department Care Team (Late st Contact Info) Description [facility] [address] [place], [place] [address] Edward Singletary MD [address] [address] Medication Refill Social History Tobacco Use Types [...] Jensen RMA - 06/03/2020 8:42 AM CLINICAL OPERATIONS MANAGER Patient has another provider, due to [employer]. ICAL OPERATIONS MANAGER * Telephone Encounter - Opal Lopes RN - 06/03/2020 8:30 AM CST Patient needs appointment per Dr Singletary. ICAL OPERATIONS MANAGER * Telephone Encounter - Christen [...] 1 year ago Screening for colon cancer [facility] Edward Fuller MD 1 year ago Essential hypertension [facility] Edward Fuller MD 1 year ago Essential hypertension [facility] Edward Fuller MD 2 years ago Pure hypercholesterolemia [facility] Edward Fuller MD 2 years ago Essential hypertension [facility] Edward Fuller MD Upcoming Appointments SILK SCREEN ETCHER - Recent and Past Visits Recent Visits [...] - This refill cannot be delegated ICAL OPERATIONS MANAGER documented in this encounter Plan of Treatment Not on file documented as of this encounter Visit Diagnoses Not on filedocumented in this encounter Additional Health Concerns Assessment Noted Time PHQ-9 Depression Total Score: 1 01/25/20 19 1:56 PM CDT documented as of this encounter Care Teams Mental Health Tech Relationship Specialty Start Date End Date Edward Singletary MD [address] [address] PCP - General Family Medicine 10/23/20 07/20/24 documented as of this encounter
--- OUTSIDE RECORDS SUMMARY | 2025-01-22 00:36 | XMS_ITS | Encounter Summary ---
Author Organization [facility] [place] [address] Phone Care Team Providers Care Tire Beader Maker Name Role Phone Edward Singletary MD Primary Care Provider [phone] Reason for Visit * Reason Comments Medication Refill Encounter Details Date Type Department Care Team (Late st Contact Info) Description 12/05/2022 Refill [facility] - Family Medicine [facility] [address] [place] [address] Edward Singletary MD [address] [address] Medication Refill Social History Tobacco Use Types [...] documented as of this encounter Care Teams Tire Beader Maker Relationship Specialty Start Date End Date Edward Singletary MD [address] [address] PCP - General Family Medicine 10/23/20 07/20/24 documented as of this encounter
--- OUTSIDE RECORDS SUMMARY | 2025-01-22 00:36 | XMS_ITS | Clinical Summary ---
Author Organization [facility] Address [address] [place] [address] Phone Care Team Providers Care Finish Sander Name Role Phone Unavailable Primary Care Provider Unavailabl e Allergies No known active allergies Medications spironolactone [...] 12:51 PM CDT Height 172.7 cm (5' 8) 10/23/2020 12:51 PM CDT Body Mass Index 27.87 10/23/2020 12:51 PM CDT Plan of Treatment Health Maintenance Due Date Last Done Comments Hepatitis C Virus (HCV) Screening 1959 TdaP Immunization 1959 Pneumococcal Immunization (5 0+ years) (1 of 2 - PCV) 1978 Cologuard 2004 Colonoscopy 2004 Colorectal Cancer Screening 2004 Immunochemical Fecal Occult Blood 2004 Zoster Immunization (1 of 2) 2009 Respiratory Syncytial Virus (RSV) Immunization (Adult) (1 - Risk 60-74 years 1-dose series) 2019 SARS-COV-2 Immunization ( - season) 2024 01/22/2021, 12/25/2020 Influenza Immunization (#1) 2025 Hepatitis B Immunization Aged Out No longer eligible based on patient's age to complete this topic Human Papillomavirus (HPV) Immunization Aged Out No longer eligible b ased on patient's age to complete this topic Meningococcal Immunization (ACWY) Aged Out No longer eligible b ased on patient's age to complete this topic Rotavirus Immunization Aged Out No lo nger eligible based on patient's age to complete this topic Insurance MEDICAID [employer]
--- NOTE | 2025-01-22 00:40 | PC.NURSE ---
Pt unable to remember the home medication list.
--- NOTE | 2025-01-22 03:40 | PC.NURSE ---
pt requesting tylenol . EDP Dr Estevan mariscal 1gm tylenol po x 1 dose
[2025-01-22] MEDS: ACETAMINOPHEN 500 MG TABLET 1000 MG PO (03:43)
--- NOTE | 2025-01-22 05:22 | PC.NURSE ---
Pt presents to ED c/o 03/16 neck shock pain, denies trauma, denies nausea.
[2025-01-22 05:26] VITALS: BP 128/73; PULSE 80; RESP 17; O2SAT 97
--- OUTSIDE RECORDS SUMMARY | 2025-01-22 05:40 | XMS_ITS | Encounter Summary ---
Author Organization [facility] Address [place] [address] Phone Care Team Providers Care Engraver Pantograph Name Role Phone Edward Singletary MD Primary Care Provider [phone] Reason for Visit * Reason Comments Medication Refill Encounter Details Date Type Department Care Team (Late st Contact Info) Description 12/05/2022 Refill [facility] - [facility] [address] [place] [address] Edward Singletary MD #[address] [address] Medication Refill Social History Tobacco Use Types [...] documented as of this encounter Care Teams Engraver Pantograph Relationship Specialty Start Date End Date Edward Singletary MD #[address] [address] PCP - General Family Medicine 10/23/20 07/20/24 documented as of this encounter
--- OUTSIDE RECORDS SUMMARY | 2025-01-22 05:40 | XMS_ITS | Clinical Summary ---
Author Organization [facility] Address [address] [place] [address] Phone Care Team Providers Care Head Banquet Waiter/Waitress Name Role Phone Unavailable Primary Care Provider [...]
--- OUTSIDE RECORDS SUMMARY | 2025-01-22 05:40 | XMS_ITS | Encounter Summary ---
Author Organization [facility] Address [address] [place] [address] Phone Care Team Providers Care Bark Spudder Name Role Phone Edward Singletary MD Primary Care Provider [phone] Reason for Visit * Reason Comments Medication Refill Encounter Details Date Type Department Care Team (Late st Contact Info) Description 05/30/2020 [facility] [address] [place], [place] [address] Edward Singletary MD [address] [address] Medication Refill Social History Tobacco Use Types [...] Renuka Jensen RMA - 06/03/2020 8:42 AM GATE WATCHMAN Patient has another provider, due to [employer] ins. WATCHMAN * Telephone Encounter - Opal Lopes RN - 06/03/2020 8:30 AM CST Patient needs appointment per Dr Singletary. WATCHMAN * Telephone Encounter - Christen Medina RN [...] 1 year ago Screening for colon cancer [facility] Edward Fuller MD 1 year ago Essential hypertension [facility] Edward Fuller MD 1 year ago Essential hypertension [facility] Edward Fuller MD 2 years ago Pure hypercholesterolemia [facility] Edward Fuller MD 2 years ago Essential hypertension [facility] Edward Fuller MD Upcoming Appointments IMPLEMENTATION ANALYST - Recent and Past Visits Recent Visits [...] Failed - This refill cannot be delegated WATCHMAN documented in this encounter Plan of Treatment Not on file documented as of this encounter Visit Diagnoses Not on filedocumented in this encounter Additional Health Concerns Assessment Noted Time PHQ-9 Depression Total Score: 1 01/25/20 19 1:56 PM CDT documented as of this encounter Care Teams Bark Spudder Relationship Specialty Start Date End Date Edward Singletary MD [address] [address] PCP - General Family Medicine 10/23/20 07/20/24 documented as of this encounter
--- OUTSIDE RECORDS SUMMARY | 2025-01-22 05:40 | XMS_ITS | Clinical Summary ---
Author Organization [facility] Address [address] [place] [address] Care Team Providers Care Agency Manager Name Role Phone Unavailable Primary Care [...]
--- NOTE | 2025-01-22 05:47 | ED.NECK ---
HPI - Neck Pain/Injury General Chief Complaint: Neck Pain/Injury Stated Complaint: left neck pinched nerve Time Seen by Provider: 01/22/25 05:22 History of Present Illness HPI Narrative: 64-year-old male with history of chronic neck pain presenting to the emergency department for an exacerbation of chronic neck pain. He has a history of cervical radiculopathy and has been evaluated multiple times in this emergency department as well as by Neurosurgery but has not gone through with the evaluation for surgery at. He ran out of pain medications at home. No other symptoms, no new traumatic injuries. Otherwise awake alert oriented with no neurological deficits. States it feels exactly like his chronic pain and requesting the same treatments that he is given previously for this. Related Data Home Medications ?Medication ?Instructions ?Recorded ?Confirmed ?Last Taken ?Type hydrocodone 10 mg-acetaminophen tablet 10/21/20 Unknown History 325 mg tablet buspirone 15 mg tablet 15 mg PO BID 03/16/24 Unknown History citalopram 40 mg tablet 20 mg PO DAILY 03/16/24 Unknown History famotidine 40 mg tablet 40 mg PO DAILY 03/16/24 Unknown History lisinopril 20 mg tablet 20 mg PO DAILY 03/16/24 Unknown History simvastatin 20 mg tablet 20 mg PO DAILY 03/16/24 Unknown History Allergies Allergy/AdvReac Type Severity Reaction Status Date / Time No Known Allergies Allergy Verified 01/22/25 05:26 Review of Systems Review of Systems: As reviewed above in HPI [facility] Past Medical History Medical History Arthritis Chronic neck pain Social History Social History Social History: Patient denies alcohol use, is a heavy smoker and uses marijuana daily Smoking packs per day: 2 Smoking cigarettes per day: 40.0 Smoking status: Current every day smoker Tobacco type: cigarettes Alcohol intake: current Alcohol use details: beer Substance use type: does not use Exam Narrative: GENERAL: [Well-appearing, well-nourished, and in no acute distress.] HEAD: Atraumatic EYES: [PERRLA and EOMI.] ENT: Nares clear, no rhinorrhea or epistaxis. Mucous membranes moist. NECK: Supple. Tenderness to palpation over the left paracervical left trapezius muscles, muscles are tense without any step-offs, deformities of the cervical spine. Pain reproducible with range of motion. CHEST: [Clear to auscultation. No respiratory distress.] HEART: [Regular rate and rhythm]. No murmur heard. [Normal peripheral pulses.] ABDOMEN: [Soft, nondistended], [nontender], [No rigidity or guarding] EXTREMITIES: Normal range of motion. [No edema.] SKIN: Warm, dry, no rash. NEURO: [No focal deficits]. Alert and oriented [x3.] PSYCH: [Normal mood and affect.] Course Vital Signs Vital signs: Vital Signs Temperature 36.8 C 01/22/25 00:35 Pulse Rate 93 01/22/25 00:35 Respiratory Rate 16 01/22/25 00:35 Blood Pressure 123/77 01/22/25 00:35 Pulse Oximetry 97 01/22/25 00:35 Oxygen Delivery Room Air 01/22/25 00:35 Temperature 36.8 C 01/22/25 00:35 Pulse Rate 80 01/22/25 05:26 Respiratory Rate 17 01/22/25 05:26 Blood Pressure 128/73 01/22/25 05:26 Pulse Oximetry 97 01/22/25 05:26 Oxygen Delivery Room Air 01/22/25 00:35 MDM - Neck Pain/Injury MDM Narrative Medical decision making narrative: 64-year-old male with history of chronic neck pain presenting to the emergency department for an exacerbation of chronic neck pain. He has a history of cervical radiculopathy and has been evaluated multiple times in this emergency department as well as by Neurosurgery but has not gone through with the evaluation for surgery at. He ran out of pain medications at home. No other symptoms, no new traumatic injuries. Otherwise awake alert oriented with no neurological deficits. States it feels exactly like his chronic pain and requesting the same treatments that he is given previously for this. Tenderness to palpation over the left paracervical left trapezius muscles, muscles are tense without any step-offs, deformities of the cervical spine. Pain reproducible with range of motion. Hemodynamically stable with normal vital signs and unremarkable neurological assessment. Pain is chronic. Given Toradol injection, Valium and oxycodone. Sent home with prescriptions for steroids, anti-inflammatories and lidocaine patches. Will have to follow up with his primary doctor and neurosurgeon for further evaluation and treatment. Medical Records Attestation: I reviewed the patient's medical records. Discharge Plan Discharge Clinical Impression: Chronic neck pain Patient Disposition: Home Condition: Stable Instructions: Antibiotic Form, Cervical Radiculopathy (ED) Additional Instructions: Follow-up with your primary care provider and specialist about her chronic neck pain. We will prescribe be some muscle relaxers and anti-inflammatories. Return with any emergent concerns. Patient Language: German Prescriptions: New acetaminophen [Tylenol Extra Strength] 500 mg tablet 1,000 mg PO TID PRN (Reason: pain) Qty: 30 0RF methocarbamol 750 mg tablet 750 mg PO TID PRN (Reason: pain) Qty: 20 0RF prednisone 50 mg tablet 50 mg PO DAILY 5 Days Qty: 5 0RF No Action famotidine 40 mg tablet 40 mg PO DAILY lisinopril 20 mg tablet 20 mg PO DAILY citalopram 40 mg tablet 20 mg PO DAILY simvastatin 20 mg tablet 20 mg PO DAILY buspirone 15 mg tablet 15 mg PO BID meloxicam 7.5 mg tablet 7.5 mg PO DAILY Qty: 30 2RF hydrocodone-acetaminophen 10-325 mg tablet cyclobenzaprine 10 mg tablet 10 mg PO TID PRN (Reason: muscle spasm) Qty: 14 0RF Follow-up/Referrals: Be Alegria MD [Primary Care Provider] - Time of Disposition: 05:44
[2025-01-22] MEDS: oxyCODONE HCL (*CRX) 2.5 MG TAB IR PO (05:56)
[2025-01-22] MEDS: KETOROLAC 30 MG/ML VIAL (*BKC) IM (05:56)
[2025-01-22] MEDS: diazePAM (*CRX) 5 MG TABLET PO (05:56)
== END 2025-01-22 06:01 | disposition home or self-care (01) ==
PROVIDERS: Emergency Provider Student in an Organized Health Care Education/Training Program; PCP Family Medicine
DX: M54.2 Cervicalgia (principal); G89.29 Other chronic pain; F17.210 Nicotine dependence, cigarettes, uncomplicated; M19.90 Unspecified osteoarthritis, unspecified site
CPT/HCPCS: 96372; 99283; A9270; J1885